=== PATIENT | female | born 1955 | race Caucasian/White ===

== ENCOUNTER → 2016-08-08 | Outpatient (CLI) | payer BC ==
[~2016-08-08] VITALS: Ht 175.3 cm; Wt 83.9 kg
[~2016-08-08] MED LIST: AFRIN,GENASAL D15 ML BOTH NARES; ALDACTONE50 MG PO; ATIVAN0.5 MG PO; K-DUR20 MEQ PO; LASIX20 MG PO; LASIX40 MG PO; LISINOPRIL20 MG PO; NORCO 5/3251 TABLET PO; ONE DAILY1 EAC3 PO; OTC ACID REDUCER; OXAYDO5 MG PO; RANITIDINE HCL150 MG PO; SPIRONOLACTONE50 MG PO; VISINE A.C300 DROP/1 BOTH EYES
[2016-08-08 06:49] LABS: HEMATOCRIT 36.3 % (36.0-46.0); MCH 32.9 PG (29.0-34.0); MCHC 33.9 G/DL (30.0-36.0); MCV 97.1 FL (83-99); MEAN PLAT.VOLUME 9.9 uM^3 (9.5-12.4); PLATELET COUNT 319 K/uL (156-360); RBC DIS.WIDTH-CV 13.2 % (11.8-14.6); RBC DIS.WIDTH-SD 47.6 % (39-53); RED BLOOD COUNT 3.74 M/uL (3.80-5.20)
[2016-08-08 06:57] LABS: CHLORIDE 106 mEq/L (99-109); POTASSIUM 3.6 mEq/L (3.7-5.4); SODIUM 138 mEq/L (136-147)
[2016-08-08 06:59] LABS: GLUCOSE 101 mg/dL (70-99)
[2016-08-08 07:00] LABS: INTER. NORMALIZED RATIO 1.2
[2016-08-08 07:01] LABS: ANION GAP 12 MEQ/L (2-14); TOTAL BILIRUBIN 1.5 mg/dL (0.0-1.0)
[2016-08-08 07:03] LABS: ALKALINE PHOSPHATASE 102 IU/L (3-129); GFR ESTIMATE (CALCULATED) 49 mL/min/
[2016-08-08 07:04] LABS: UREA NITROGEN (BUN) 9 mg/dL (9-23)
== END | disposition home or self-care (01) ==
LOC: AMB 06:31
PROVIDERS: Internal Medicine
DX: Z12.11 Encounter for screening for malignant neoplasm of colon (principal); Z09 Encounter for follow-up examination after completed treatment for conditions other than malignant neoplasm; K70.31 Alcoholic cirrhosis of liver with ascites; D12.6 Benign neoplasm of colon, unspecified; K52.89 Other specified noninfective gastroenteritis and colitis; K57.30 Diverticulosis of large intestine without perforation or abscess without bleeding; K91.840 Postprocedural hemorrhage of a digestive system organ or structure following a digestive system procedure; Z93.3 Colostomy status; Z93.2 Ileostomy status; R10.30 Lower abdominal pain, unspecified; R79.1 Abnormal coagulation profile; D64.9 Anemia, unspecified; Z79.899 Other long term (current) drug therapy
CPT/HCPCS: 80053; 85027; 85610; 88305; 93005; J1100; J2250; J2405; J3010

== ENCOUNTER 2016-09-18 06:24 | Inpatient (IN) | payer BC ==
[~2016-09-18] VITALS: Ht 177.8 cm; Wt 80.0 kg
[2016-09-18 06:49] VITALS: BP 108/71
[2016-09-18 09:45] LABS: METH RESISTANT S AUREUS PCR NEGATIVE (NEGATIVE); PROBE CHECK PASS; SPECIMEN PROCESSING CONTROL PASS
[2016-09-18 19:12] VITALS: BP 115/59
[2016-09-18 20:10] LABS: EOSINOPHIL (%) 0 % (0-5); HEMATOCRIT 24.9 % (36.0-46.0); IMMATURE GRANULOCYTE (%) 0.3 % (0.0-0.7); LYMPHOCYTE COUNT 0.4 K/uL (1.0-2.8); MCH 32.6 PG (29.0-34.0); MCHC 33.7 G/DL (30.0-36.0); MCV 96.5 FL (83-99); MEAN PLAT.VOLUME 10.5 uM^3 (9.5-12.4); MONOCYTE (%) 7.9 % (3-12); MONOCYTE COUNT 0.7 K/uL (0-0.8); NEUTROPHIL (%) 87.8 % (45-76); RBC DIS.WIDTH-CV 12.8 % (11.8-14.6); RBC DIS.WIDTH-SD 45.3 % (39-53)
[2016-09-18 20:19] LABS: CHLORIDE 104 mEq/L (99-109); POTASSIUM 3.9 mEq/L (3.7-5.4); SODIUM 134 mEq/L (136-147)
[2016-09-18 20:22] LABS: GLUCOSE 134 mg/dL (70-99)
[2016-09-18 20:23] LABS: ANION GAP 9 MEQ/L (2-14)
[2016-09-18 20:24] LABS: TOTAL BILIRUBIN 1.1 mg/dL (0.0-1.0)
[2016-09-18 20:25] LABS: ALKALINE PHOSPHATASE 56 IU/L (3-129)
[2016-09-18 20:26] LABS: GFR ESTIMATE (CALCULATED) > 59 mL/min/
[2016-09-18 20:27] LABS: UREA NITROGEN (BUN) 11 mg/dL (9-23)
[2016-09-18 20:36] LABS: MAGNESIUM 0.9 mg/dL (1.3-2.7)
[2016-09-18 21:22] LABS: RED BLOOD COUNT 2.58 M/uL (3.80-5.20); WHITE BLOOD COUNT 9.1 K/uL (4.1-10.2)
[2016-09-18 22:59] VITALS: BP 114/61
[2016-09-19 00:03] VITALS: BP 114/61
[2016-09-19 03:47] VITALS: BP 125/59
[2016-09-19 07:13] LABS: EOSINOPHIL (%) 0 % (0-5); HEMATOCRIT 24.9 % (36.0-46.0); IMMATURE GRANULOCYTE (%) 0.4 % (0.0-0.7); INSTRUMENT ABS NEUTROPHIL CT 9.4 K/uL; LYMPHOCYTE COUNT 0.5 K/uL (1.0-2.8); MCH 33.2 PG (29.0-34.0); MCHC 33.7 G/DL (30.0-36.0); MCV 98.4 FL (83-99); MEAN PLAT.VOLUME 10.6 uM^3 (9.5-12.4); MONOCYTE (%) 12.5 % (3-12); MONOCYTE COUNT 1.4 K/uL (0-0.8); NEUTROPHIL (%) 82.4 % (45-76); NEUTROPHIL COUNT 9.4 K/uL (1.8-6.4); RBC DIS.WIDTH-CV 12.9 % (11.8-14.6); RBC DIS.WIDTH-SD 46.6 % (39-53); RED BLOOD COUNT 2.53 M/uL (3.80-5.20); WHITE BLOOD COUNT 11.4 K/uL (4.1-10.2)
[2016-09-19 07:36] LABS: ALKALINE PHOSPHATASE 54 IU/L (3-129); ANION GAP 5 MEQ/L (2-14); CHLORIDE 104 MEQ/L (99-109); GFR ESTIMATE (CALCULATED) > 59 mL/min/; GLUCOSE 102 mg/dL (70-99); MAGNESIUM 2.2 mg/dl (1.3-2.7); POTASSIUM 4.2 MEQ/L (3.7-5.4); SAMPLE HEMOLYSIS CHECK 0; SAMPLE ICTERIC CHECK 0; SAMPLE LIPEMIA CHECK 0; SODIUM 135 MEQ/L (136-147); TOTAL BILIRUBIN 0.8 MG/DL (0.0-1.0); UREA NITROGEN (BUN) 13 mg/dL (9-23)
[2016-09-19 07:47] VITALS: BP 101/63
[2016-09-19 07:52] LABS: PLATELET COUNT 163 K/uL (156-360)
[2016-09-19 12:04] VITALS: BP 106/56
[2016-09-19 16:38] VITALS: BP 109/63
[2016-09-19 20:09] VITALS: BP 98/54
[2016-09-20] VITALS (7 sets, daily range): BP systolic 91–117; BP diastolic 53–67
[2016-09-21 04:00] VITALS: BP 98/51
[2016-09-21 07:04] VITALS: BP 101/50
[2016-09-21 13:43] VITALS: BP 96/52
[2016-09-21 15:36] VITALS: BP 91/64
[2016-09-21 17:14] LABS: EOSINOPHIL (%) 2.6 % (0-5); EOSINOPHIL COUNT 0.2 K/uL (0-0.3); HEMATOCRIT 23.7 % (36.0-46.0); IMMATURE GRANULOCYTE (%) 0.2 % (0.0-0.7); INSTRUMENT ABS NEUTROPHIL CT 3.6 K/uL; LYMPHOCYTE COUNT 1.7 K/uL (1.0-2.8); MCH 32.5 PG (29.0-34.0); MCHC 33.8 G/DL (30.0-36.0); MCV 96.3 FL (83-99); MEAN PLAT.VOLUME 10.6 uM^3 (9.5-12.4); MONOCYTE (%) 11.9 % (3-12); MONOCYTE COUNT 0.7 K/uL (0-0.8); NEUTROPHIL (%) 57.9 % (45-76); NEUTROPHIL COUNT 3.6 K/uL (1.8-6.4); PLATELET COUNT 172 K/uL (156-360); RBC DIS.WIDTH-CV 12.8 % (11.8-14.6); RBC DIS.WIDTH-SD 45.7 % (39-53); RED BLOOD COUNT 2.46 M/uL (3.80-5.20)
[2016-09-21 17:15] LABS: WHITE BLOOD COUNT 6.2 K/uL (4.1-10.2)
[2016-09-21 17:23] LABS: CHLORIDE 105 mEq/L (99-109); SODIUM 139 mEq/L (136-147)
[2016-09-21 17:25] LABS: GLUCOSE 89 mg/dL (70-99)
[2016-09-21 17:27] LABS: ANION GAP 7 MEQ/L (2-14); TOTAL BILIRUBIN 0.9 mg/dL (0.0-1.0)
[2016-09-21 17:29] LABS: ALKALINE PHOSPHATASE 54 IU/L (3-129); GFR ESTIMATE (CALCULATED) > 59 mL/min/
[2016-09-21 17:30] LABS: UREA NITROGEN (BUN) 7 mg/dL (9-23)
[2016-09-21 17:39] LABS: MAGNESIUM 1.4 mg/dL (1.3-2.7); POTASSIUM 3.2 mEq/L (3.7-5.4)
[2016-09-21 19:43] VITALS: BP 116/59
[2016-09-22 03:36] VITALS: BP 92/50
[2016-09-22 06:31] LABS: EOSINOPHIL (%) 3.6 % (0-5); EOSINOPHIL COUNT 0.2 K/uL (0-0.3); HEMATOCRIT 22.9 % (36.0-46.0); IMMATURE GRANULOCYTE (%) 0.5 % (0.0-0.7); INSTRUMENT ABS NEUTROPHIL CT 4.3 K/uL; LYMPHOCYTE COUNT 1.2 K/uL (1.0-2.8); MCH 33.6 PG (29.0-34.0); MCHC 34.1 G/DL (30.0-36.0); MCV 98.7 FL (83-99); MEAN PLAT.VOLUME 11.1 uM^3 (9.5-12.4); MONOCYTE (%) 13.9 % (3-12); MONOCYTE COUNT 0.9 K/uL (0-0.8); NEUTROPHIL (%) 64.4 % (45-76); NEUTROPHIL COUNT 4.3 K/uL (1.8-6.4); PLATELET COUNT 197 K/uL (156-360); RBC DIS.WIDTH-CV 13.1 % (11.8-14.6); RBC DIS.WIDTH-SD 47.1 % (39-53); RED BLOOD COUNT 2.32 M/uL (3.80-5.20); WHITE BLOOD COUNT 6.6 K/uL (4.1-10.2)
[2016-09-22 06:49] LABS: ALKALINE PHOSPHATASE 55 IU/L (3-129); ANION GAP 7 MEQ/L (2-14); CHLORIDE 102 MEQ/L (99-109); GFR ESTIMATE (CALCULATED) > 59 mL/min/; GLUCOSE 88 mg/dL (70-99); MAGNESIUM 2.4 mg/dl (1.3-2.7); SAMPLE HEMOLYSIS CHECK 0; SAMPLE ICTERIC CHECK 0; SAMPLE LIPEMIA CHECK 0; SODIUM 134 MEQ/L (136-147); UREA NITROGEN (BUN) 8 mg/dL (9-23)
[2016-09-22 06:52] LABS: POTASSIUM 4.3 MEQ/L (3.7-5.4)
[2016-09-22 07:04] VITALS: BP 99/54
[2016-09-22 12:10] VITALS: BP 100/64
[2016-09-22] MEDS ORDERED: OXAYDO5 MG PO (13:29)
== END 2016-09-22 14:40 | disposition home or self-care (01) | DRG 330 ==
LOC: 2SOUTH 06:24 → 5EAST 16:52
PROVIDERS: Surgery
DX: Z43.3 Encounter for attention to colostomy (principal); K70.31 Alcoholic cirrhosis of liver with ascites; L76.34 Postprocedural seroma of skin and subcutaneous tissue following other procedure; T81.89XA Other complications of procedures, not elsewhere classified, initial encounter; K66.0 Peritoneal adhesions (postprocedural) (postinfection); Z93.2 Ileostomy status; K43.2 Incisional hernia without obstruction or gangrene; E66.9 Obesity, unspecified; Z68.26 Body mass index [BMI] 26.0-26.9, adult; Z87.891 Personal history of nicotine dependence
CPT/HCPCS: 80053; 83735; 84100; 85025; 86900; 86901; 87641; 88302; 88305; 94799; C1781; J0131; J1100; J1170; J1650; J2175; J2250; J2405; J3475; J7040; J7120; P9045; S0030

== ENCOUNTER → 2017-01-01 | Outpatient (CLI) | payer BC ==
[~2017-01-01] VITALS: Ht 177.8 cm; Wt 78.2 kg
[~2017-01-01] MED LIST changes: +FLEXERIL10 MG PO; +MOBIC15 MG PO; +NEURONTIN300 MG PO
[2017-01-01 12:51] LABS: MCV 91.9 FL (83-99)
[2017-01-01 12:54] LABS: INTER. NORMALIZED RATIO 1.3; PROTHROMBIN TIME 14.1 SEC (10.2-12.9)
[2017-01-01 12:59] LABS: CHLORIDE 100 mEq/L (99-109); POTASSIUM 4.2 mEq/L (3.7-5.4); SODIUM 137 mEq/L (136-147)
[2017-01-01 13:01] LABS: GLUCOSE 91 mg/dL (70-99)
[2017-01-01 13:02] LABS: ANION GAP 14 MEQ/L (2-14)
[2017-01-01 13:05] LABS: GFR ESTIMATE (CALCULATED) 53 mL/min/
[2017-01-01 13:06] LABS: UREA NITROGEN (BUN) 16 mg/dL (9-23)
== END | disposition home or self-care (01) ==
LOC: AMB 11:50
PROVIDERS: Internal Medicine Gastroenterology
PROC: 0D7N8ZZ Dilation of Sigmoid Colon, Via Natural or Artificial Opening Endoscopic (ICD-10-PCS; principal; 2017-01-01)
DX: Z09 Encounter for follow-up examination after completed treatment for conditions other than malignant neoplasm (principal); K56.60 Unspecified intestinal obstruction; K63.89 Other specified diseases of intestine; K57.31 Diverticulosis of large intestine without perforation or abscess with bleeding; K70.9 Alcoholic liver disease, unspecified; I10 Essential (primary) hypertension; K21.9 Gastro-esophageal reflux disease without esophagitis; Z87.891 Personal history of nicotine dependence
CPT/HCPCS: 80048; 85014; 85018; 85610; C1757; J3010

== ENCOUNTER → 2017-01-15 | Outpatient (CLI) | payer BC ==
[~2017-01-15] VITALS: Ht 177.8 cm; Wt 78.2 kg
== END | disposition home or self-care (01) ==
LOC: AMB 12:30
PROC: 0D7N8ZZ Dilation of Sigmoid Colon, Via Natural or Artificial Opening Endoscopic (ICD-10-PCS; principal; 2017-01-15)
PROC: 3E0H8GC Introduction of Other Therapeutic Substance into Lower GI, Via Natural or Artificial Opening Endoscopic (ICD-10-PCS; principal; 2017-01-15)
DX: K91.3 Postprocedural intestinal obstruction (principal); Z93.2 Ileostomy status; K70.31 Alcoholic cirrhosis of liver with ascites; K57.90 Diverticulosis of intestine, part unspecified, without perforation or abscess without bleeding; Z90.49 Acquired absence of other specified parts of digestive tract; Z87.891 Personal history of nicotine dependence
CPT/HCPCS: C1757; J2250; J3010; J3301

== ENCOUNTER → 2017-01-29 | Outpatient (CLI) | payer BC | END | disposition home or self-care (01) | LOC: AMB 11:57 | DX: K56.699 Other intestinal obstruction unspecified as to partial versus complete obstruction (principal); Z93.2 Ileostomy status | CPT/HCPCS: 74000; 76000; C1757; J2250; J2405; J3010 ==

== ENCOUNTER → 2017-02-11 | Outpatient (CLI) | payer BC ==
[~2017-02-11] VITALS: Ht 177.8 cm; Wt 78.2 kg
== END | disposition home or self-care (01) ==
LOC: AMB 11:34
DX: K91.89 Other postprocedural complications and disorders of digestive system (principal); Z93.2 Ileostomy status
CPT/HCPCS: J2250

== ENCOUNTER 2017-03-03 03:59 | Inpatient (IN) | payer BC ==
[~2017-03-03] VITALS: Ht 177.8 cm; Wt 108.8 kg
[2017-03-03 04:31] LABS: MEAN PLAT.VOLUME 9.3 uM^3 (9.5-12.4); PLATELET COUNT 237 K/uL (156-360)
[2017-03-03 04:35] LABS: HEMATOCRIT 37.3 % (36.0-46.0); MCH 32.3 PG (29.0-34.0); MCHC 34.9 G/DL (30.0-36.0); MCV 92.6 FL (83-99); RBC DIS.WIDTH-CV 14.5 % (11.8-14.6); RBC DIS.WIDTH-SD 49.6 % (39-53); RED BLOOD COUNT 4.03 M/uL (3.80-5.20)
[2017-03-03 04:41] LABS: CHLORIDE 103 mEq/L (99-109); POTASSIUM 5.3 mEq/L (3.7-5.4); SODIUM 130 mEq/L (136-147)
[2017-03-03 04:42] LABS: GLUCOSE 115 mg/dL (70-99)
[2017-03-03 04:44] LABS: ANION GAP 11 MEQ/L (2-14)
[2017-03-03 04:46] LABS: GFR ESTIMATE (CALCULATED) > 59 mL/min/
[2017-03-03 04:47] LABS: UREA NITROGEN (BUN) 33 mg/dL (9-23)
[2017-03-03 04:57] LABS: ALKALINE PHOSPHATASE 156 IU/L (3-129)
[2017-03-03 04:59] LABS: DIRECT BILIRUBIN 0.5 mg/dL (0.0-0.3)
[2017-03-03 05:00] LABS: LIPASE 16 U/L (1.0-51.0)
[2017-03-03 05:37] LABS: ADD MIUA? NO; BILIRUBIN NEGATIVE; BLOOD NEGATIVE; COLOR YELLOW ((YELLOW)); GLUCOSE (STRIP) NEGATIVE; KETONES NEGATIVE; LEUKOCYTES NEGATIVE; NITRITE NEGATIVE; PROTEIN (STRIP) NEGATIVE; SPECIFIC GRAVITY 1.016 (1.000-1.030); UCUL ADDED? NO; UROBILINOGEN 0.2 MG/DL (0.2-1.0)
[2017-03-03] MEDS ORDERED: CEFTIN500 MG PO (09:03)
[2017-03-03 11:46] LABS: INTER. NORMALIZED RATIO 1.3; PROTHROMBIN TIME 14.6 SEC (10.2-12.9)
[2017-03-03 13:53] VITALS: BP 121/72
[2017-03-03 21:00] VITALS: BP 131/74
[2017-03-04 00:47] VITALS: BP 111/65
[2017-03-04 04:03] VITALS: BP 109/69
[2017-03-04 07:10] VITALS: BP 110/67
[2017-03-04 11:45] VITALS: BP 111/68
[2017-03-04 12:45] LABS: HEMATOCRIT 31.1 % (36.0-46.0); MCH 32.1 PG (29.0-34.0); MCHC 33.1 G/DL (30.0-36.0); RBC DIS.WIDTH-CV 15.3 % (11.8-14.6); RBC DIS.WIDTH-SD 54.6 % (39-53); WHITE BLOOD COUNT 17.9 K/uL (4.1-10.2)
[2017-03-04 12:53] LABS: MCV 96.9 FL (83-99); RED BLOOD COUNT 3.21 M/uL (3.80-5.20)
[2017-03-04 13:06] LABS: ANION GAP 7 MEQ/L (2-14); CHLORIDE 111 MEQ/L (99-109); GFR ESTIMATE (CALCULATED) > 59 mL/min/; GLUCOSE 122 mg/dL (70-99); POTASSIUM 4.9 MEQ/L (3.7-5.4); SAMPLE HEMOLYSIS CHECK 0; SAMPLE ICTERIC CHECK 0; SAMPLE LIPEMIA CHECK 0; SODIUM 133 MEQ/L (136-147); UREA NITROGEN (BUN) 35 mg/dL (9-23)
[2017-03-04 13:23] LABS: ABS NEUTROPHIL COUNT 17.4; ANISOCYTOSIS 1+; BAND NEUTROPHILS 22.8 % (0-8.0); BURR CELLS 3+; EOSINOPHIL ABS CT 0; LYMPHOCYTES 0.9 % (15.0-45.0); MACROCYTES 1+; MEAN PLAT.VOLUME 9.2 uM^3 (9.5-12.4); PLAT.SUFFICIENCY DECREASED; POIKILOCYTOSIS 3+; SEG.NEUTROPHILS 74.6 % (46.0-76.0)
[2017-03-04 13:28] LABS: PLATELET COUNT 155 K/uL (156-360)
[2017-03-04 16:15] VITALS: BP 115/70
[2017-03-04 19:22] VITALS: BP 113/63
[2017-03-05 00:07] VITALS: BP 135/76
[2017-03-05 04:19] VITALS: BP 132/74
[2017-03-05 05:20] LABS: HEMATOCRIT 29.7 % (36.0-46.0); MCH 31.5 PG (29.0-34.0); MCHC 33.7 G/DL (30.0-36.0); MCV 93.7 FL (83-99); MEAN PLAT.VOLUME 8.9 uM^3 (9.5-12.4); RBC DIS.WIDTH-CV 15.3 % (11.8-14.6); RED BLOOD COUNT 3.17 M/uL (3.80-5.20); WHITE BLOOD COUNT 19.8 K/uL (4.1-10.2)
[2017-03-05 06:43] LABS: ABS NEUTROPHIL COUNT 19.5; ANISOCYTOSIS 1+; BAND NEUTROPHILS 11.1 % (0-8.0); BURR CELLS 3+; EOSINOPHIL ABS CT 0; INSTRUMENT ABS NEUTROPHIL CT 18.1 K/uL; LYMPHOCYTES 0.8 % (15.0-45.0); MACROCYTES 1+; PLAT.SUFFICIENCY ADEQUATE; POIKILOCYTOSIS 3+; SEG.NEUTROPHILS 87.2 % (46.0-76.0)
[2017-03-05 07:38] LABS: ALKALINE PHOSPHATASE 103 IU/L (3-129); ANION GAP 7 MEQ/L (2-14); CHLORIDE 112 MEQ/L (99-109); GFR ESTIMATE (CALCULATED) > 59 mL/min/; POTASSIUM 4.7 MEQ/L (3.7-5.4); SAMPLE HEMOLYSIS CHECK 0; SAMPLE ICTERIC CHECK 0; SAMPLE LIPEMIA CHECK 0; SODIUM 134 MEQ/L (136-147); TOTAL BILIRUBIN 0.8 MG/DL (0.0-1.0); UREA NITROGEN (BUN) 32 mg/dL (9-23)
[2017-03-05 07:41] LABS: GLUCOSE 86 mg/dL (70-99)
[2017-03-05 07:50] VITALS: BP 123/70
[2017-03-05 11:15] VITALS: BP 116/70
[2017-03-05 15:50] VITALS: BP 120/72
[2017-03-05 20:44] VITALS: BP 102/67
[2017-03-06 01:14] VITALS: BP 141/74
[2017-03-06 04:17] VITALS: BP 118/71
[2017-03-06 05:41] LABS: HEMATOCRIT 29.2 % (36.0-46.0); MCHC 33.9 G/DL (30.0-36.0); MCV 94.5 FL (83-99); MEAN PLAT.VOLUME 9.2 uM^3 (9.5-12.4); RBC DIS.WIDTH-CV 15.7 % (11.8-14.6); RED BLOOD COUNT 3.09 M/uL (3.80-5.20); WHITE BLOOD COUNT 18.8 K/uL (4.1-10.2)
[2017-03-06 05:52] LABS: PLATELET COUNT 204 K/uL (156-360)
[2017-03-06 06:46] LABS: ALKALINE PHOSPHATASE 105 IU/L (3-129); ANION GAP 5 MEQ/L (2-14); CHLORIDE 108 MEQ/L (99-109); GFR ESTIMATE (CALCULATED) > 59 mL/min/; GLUCOSE 71 mg/dL (70-99); MAGNESIUM 1.5 mg/dl (1.3-2.7); POTASSIUM 4.4 MEQ/L (3.7-5.4); SAMPLE HEMOLYSIS CHECK 0; SAMPLE ICTERIC CHECK 0; SAMPLE LIPEMIA CHECK 0; SODIUM 130 MEQ/L (136-147); TOTAL BILIRUBIN 0.9 MG/DL (0.0-1.0); UREA NITROGEN (BUN) 26 mg/dL (9-23)
[2017-03-06 07:32] LABS: ABS NEUTROPHIL COUNT 17.7; ANISOCYTOSIS 2+; BAND NEUTROPHILS 20.2 % (0-8.0); BASOPHILS 2.5 %; BURR CELLS 2+; EOSINOPHIL ABS CT 0; INSTRUMENT ABS NEUTROPHIL CT 16.9 K/uL; LYMPHOCYTES 1.7 % (15.0-45.0); MACROCYTES 2+; PLAT.SUFFICIENCY ADEQUATE; POIKILOCYTOSIS 2+; SEG.NEUTROPHILS 73.9 % (46.0-76.0)
[2017-03-06 08:20] VITALS: BP 120/66
[2017-03-06 11:52] VITALS: BP 120/78
[2017-03-06 16:00] VITALS: BP 132/70
[2017-03-06 19:15] VITALS: BP 130/80
[2017-03-07 00:09] VITALS: BP 139/74
[2017-03-07 04:45] VITALS: BP 129/67
[2017-03-07 05:26] LABS: HEMATOCRIT 29.1 % (36.0-46.0); MCH 31.6 PG (29.0-34.0); MEAN PLAT.VOLUME 8.6 uM^3 (9.5-12.4); PLATELET COUNT 219 K/uL (156-360); RBC DIS.WIDTH-CV 15.3 % (11.8-14.6); RBC DIS.WIDTH-SD 52.2 % (39-53); RED BLOOD COUNT 3.13 M/uL (3.80-5.20); WHITE BLOOD COUNT 15.5 K/uL (4.1-10.2)
[2017-03-07 05:53] LABS: ANION GAP 7 MEQ/L (2-14); CHLORIDE 105 MEQ/L (99-109); GFR ESTIMATE (CALCULATED) > 59 mL/min/; GLUCOSE 80 mg/dL (70-99); POTASSIUM 4.1 MEQ/L (3.7-5.4); SAMPLE HEMOLYSIS CHECK 0; SAMPLE ICTERIC CHECK 0; SAMPLE LIPEMIA CHECK 0; SODIUM 129 MEQ/L (136-147); UREA NITROGEN (BUN) 22 mg/dL (9-23)
[2017-03-07 07:11] LABS: ANISOCYTOSIS 2+; BURR CELLS 2+; EOSINOPHIL ABS CT 0; HEMATOLOGY COMMENT 1 SN; INSTRUMENT ABS NEUTROPHIL CT 13.2 K/uL; LYMPHOCYTES 3.5 % (15.0-45.0); MACROCYTES 2+; PLAT.SUFFICIENCY ADEQUATE; POIKILOCYTOSIS 2+; SEG.NEUTROPHILS 90.4 % (46.0-76.0)
[2017-03-07 08:00] VITALS: BP 117/76
[2017-03-07 13:08] VITALS: BP 122/82
[2017-03-07 17:17] VITALS: BP 128/69
[2017-03-07 18:59] VITALS: BP 106/81
[2017-03-08] VITALS (7 sets, daily range): BP systolic 110–130; BP diastolic 58–72
[2017-03-08 08:18] LABS: BASOPHIL COUNT 0.1 K/uL (0-0.1); EOSINOPHIL (%) 0.3 % (0-5); EOSINOPHIL COUNT 0.1 K/uL (0-0.3); HEMATOCRIT 28.3 % (36.0-46.0); IMMATURE GRANULOCYTE (%) 2.4 % (0.0-0.7); IMMATURE GRANULOCYTE COUNT 0.4 K/uL; INSTRUMENT ABS NEUTROPHIL CT 12.6 K/uL; LYMPHOCYTE COUNT 0.9 K/uL (1.0-2.8); MCH 32.8 PG (29.0-34.0); MCHC 34.6 G/DL (30.0-36.0); MCV 94.6 FL (83-99); MEAN PLAT.VOLUME 8.7 uM^3 (9.5-12.4); MONOCYTE (%) 7.3 % (3-12); MONOCYTE COUNT 1.1 K/uL (0-0.8); NEUTROPHIL (%) 83.8 % (45-76); NEUTROPHIL COUNT 12.6 K/uL (1.8-6.4); PLATELET COUNT 211 K/uL (156-360); RBC DIS.WIDTH-CV 15.2 % (11.8-14.6); RBC DIS.WIDTH-SD 52.9 % (39-53); RED BLOOD COUNT 2.99 M/uL (3.80-5.20)
[2017-03-08 09:24] LABS: ANION GAP 9 MEQ/L (2-14); CHLORIDE 104 MEQ/L (99-109); GFR ESTIMATE (CALCULATED) > 59 mL/min/; GLUCOSE 76 mg/dL (70-99); POTASSIUM 4.3 MEQ/L (3.7-5.4); SAMPLE HEMOLYSIS CHECK 0; SAMPLE ICTERIC CHECK 0; SAMPLE LIPEMIA CHECK 0; SODIUM 130 MEQ/L (136-147); UREA NITROGEN (BUN) 21 mg/dL (9-23)
[2017-03-09 03:52] VITALS: BP 109/62
[2017-03-09 05:38] LABS: HEMATOCRIT 27.5 % (36.0-46.0); MCH 31.6 PG (29.0-34.0); MCHC 33.5 G/DL (30.0-36.0); MCV 94.5 FL (83-99); MEAN PLAT.VOLUME 8.9 uM^3 (9.5-12.4); PLATELET COUNT 248 K/uL (156-360); RED BLOOD COUNT 2.91 M/uL (3.80-5.20); WHITE BLOOD COUNT 17.9 K/uL (4.1-10.2)
[2017-03-09 06:13] LABS: ALKALINE PHOSPHATASE 96 IU/L (3-129); ANION GAP 6 MEQ/L (2-14); CHLORIDE 104 MEQ/L (99-109); GFR ESTIMATE (CALCULATED) > 59 mL/min/; GLUCOSE 82 mg/dL (70-99); MAGNESIUM 1.3 mg/dl (1.3-2.7); POTASSIUM 4.2 MEQ/L (3.7-5.4); SAMPLE HEMOLYSIS CHECK 0; SAMPLE ICTERIC CHECK 0; SAMPLE LIPEMIA CHECK 0; SODIUM 130 MEQ/L (136-147); UREA NITROGEN (BUN) 17 mg/dL (9-23)
[2017-03-09 06:30] LABS: EOSINOPHIL (%) 0.6 % (0-5); EOSINOPHIL COUNT 0.1 K/uL (0-0.3); IMMATURE GRANULOCYTE (%) 3.9 % (0.0-0.7); IMMATURE GRANULOCYTE COUNT 0.7 K/uL; INSTRUMENT ABS NEUTROPHIL CT 14.8 K/uL; MONOCYTE (%) 7.1 % (3-12); MONOCYTE COUNT 1.3 K/uL (0-0.8); NEUTROPHIL (%) 82.7 % (45-76); NEUTROPHIL COUNT 14.8 K/uL (1.8-6.4)
[2017-03-09 07:29] VITALS: BP 106/61
[2017-03-09 13:47] VITALS: BP 114/70
[2017-03-09 16:12] VITALS: BP 113/61
[2017-03-09 17:43] LABS: ADD MIUA? YES; BILIRUBIN NEGATIVE; BLOOD NEGATIVE; COLOR YELLOW ((YELLOW)); GLUCOSE (STRIP) NEGATIVE; KETONES NEGATIVE; LEUKOCYTES TRACE; NITRITE NEGATIVE; PROTEIN (STRIP) NEGATIVE; SPECIFIC GRAVITY 1.014 (1.000-1.030); UROBILINOGEN 0.2 MG/DL (0.2-1.0)
[2017-03-09 17:51] LABS: BACTERIA NONE SEEN /HPF; EPITHELIAL CELLS RARE /HPF; HYALINE CASTS 40-50 /LPF; MUCUS 1+ /LPF; RED BLOOD CELLS 0-5 /HPF (0-5); UCUL ADDED? NO; WHITE BLOOD CELLS 0-5 /HPF (0-5)
[2017-03-09 19:00] VITALS: BP 128/74
[2017-03-09 22:45] VITALS: BP 121/62
[2017-03-10 03:45] VITALS: BP 118/68
[2017-03-10 07:36] VITALS: BP 118/75
[2017-03-10 08:41] LABS: HEMATOCRIT 30.2 % (36.0-46.0); MCH 31.6 PG (29.0-34.0); MCHC 33.4 G/DL (30.0-36.0); MCV 94.4 FL (83-99); MEAN PLAT.VOLUME 8.4 uM^3 (9.5-12.4); PLATELET COUNT 267 K/uL (156-360); RBC DIS.WIDTH-SD 51.7 % (39-53); WHITE BLOOD COUNT 22.1 K/uL (4.1-10.2)
[2017-03-10 09:17] LABS: ANION GAP 6 MEQ/L (2-14); CHLORIDE 101 MEQ/L (99-109); POTASSIUM 4.3 MEQ/L (3.7-5.4); SAMPLE HEMOLYSIS CHECK 0; SAMPLE ICTERIC CHECK 0; SAMPLE LIPEMIA CHECK 0; SODIUM 128 MEQ/L (136-147)
[2017-03-10 09:23] LABS: GFR ESTIMATE (CALCULATED) > 59 mL/min/; GLUCOSE 85 mg/dL (70-99); UREA NITROGEN (BUN) 15 mg/dL (9-23)
[2017-03-10 11:29] VITALS: BP 114/61
[2017-03-10 16:19] VITALS: BP 147/82
[2017-03-10 19:41] VITALS: BP 103/67
[2017-03-10 23:37] VITALS: BP 108/65
[2017-03-11] VITALS (10 sets, daily range): BP systolic 94–137; BP diastolic 61–75
[2017-03-11 08:49] LABS: MEAN PLAT.VOLUME 8.4 uM^3 (9.5-12.4); PLATELET COUNT 300 K/uL (156-360)
[2017-03-11 08:52] LABS: HEMATOCRIT 29.3 % (36.0-46.0); MCH 31.5 PG (29.0-34.0); MCHC 33.4 G/DL (30.0-36.0); MCV 94.2 FL (83-99); RBC DIS.WIDTH-CV 15.4 % (11.8-14.6); RBC DIS.WIDTH-SD 52.2 % (39-53); RED BLOOD COUNT 3.11 M/uL (3.80-5.20)
[2017-03-11 09:01] LABS: WHITE BLOOD COUNT 31.4 K/uL (4.1-10.2)
[2017-03-11 10:14] LABS: ANION GAP 7 MEQ/L (2-14); CHLORIDE 99 MEQ/L (99-109); GFR ESTIMATE (CALCULATED) > 59 mL/min/; GLUCOSE 86 mg/dL (70-99); POTASSIUM 4.9 MEQ/L (3.7-5.4); SAMPLE HEMOLYSIS CHECK 0; SAMPLE ICTERIC CHECK 0; SAMPLE LIPEMIA CHECK 0; SODIUM 125 MEQ/L (136-147); UREA NITROGEN (BUN) 22 mg/dL (9-23)
[2017-03-11 17:54] LABS: HEMATOCRIT 27.8 % (36.0-46.0); MCHC 33.8 G/DL (30.0-36.0); MCV 94.6 FL (83-99); MEAN PLAT.VOLUME 8.8 uM^3 (9.5-12.4); PLATELET COUNT 332 K/uL (156-360); RBC DIS.WIDTH-CV 15.3 % (11.8-14.6); RBC DIS.WIDTH-SD 52.3 % (39-53); RED BLOOD COUNT 2.94 M/uL (3.80-5.20); WHITE BLOOD COUNT 27.3 K/uL (4.1-10.2)
[2017-03-11 18:20] LABS: ALKALINE PHOSPHATASE 118 IU/L (3-129); ANION GAP 4 MEQ/L (2-14); CHLORIDE 97 MEQ/L (99-109); GFR ESTIMATE (CALCULATED) > 59 mL/min/; GLUCOSE 96 mg/dL (70-99); MAGNESIUM 1.3 mg/dl (1.3-2.7); POTASSIUM 4.5 MEQ/L (3.7-5.4); SAMPLE HEMOLYSIS CHECK 0; SAMPLE ICTERIC CHECK 0; SAMPLE LIPEMIA CHECK 0; SODIUM 124 MEQ/L (136-147); TOTAL BILIRUBIN 0.7 MG/DL (0.0-1.0); UREA NITROGEN (BUN) 23 mg/dL (9-23)
[2017-03-11 21:03] LABS: METH RESISTANT S AUREUS PCR NEGATIVE (NEGATIVE)
[2017-03-11 21:11] LABS: PROBE CHECK PASS; SPECIMEN PROCESSING CONTROL PASS
[2017-03-12] VITALS (22 sets, daily range): BP systolic 91–119; BP diastolic 59–77
[2017-03-12 04:50] LABS: EOSINOPHIL (%) 0.2 % (0-5); HEMATOCRIT 25.2 % (36.0-46.0); IMMATURE GRANULOCYTE (%) 3.7 % (0.0-0.7); IMMATURE GRANULOCYTE COUNT 0.6 K/uL; INSTRUMENT ABS NEUTROPHIL CT 13.7 K/uL; LYMPHOCYTE COUNT 0.9 K/uL (1.0-2.8); MCH 32.1 PG (29.0-34.0); MCHC 34.1 G/DL (30.0-36.0); MEAN PLAT.VOLUME 8.4 uM^3 (9.5-12.4); MONOCYTE (%) 6.7 % (3-12); MONOCYTE COUNT 1.1 K/uL (0-0.8); NEUTROPHIL COUNT 13.7 K/uL (1.8-6.4); PLATELET COUNT 255 K/uL (156-360); RBC DIS.WIDTH-CV 15.4 % (11.8-14.6); RBC DIS.WIDTH-SD 52.5 % (39-53); RED BLOOD COUNT 2.68 M/uL (3.80-5.20); WHITE BLOOD COUNT 16.4 K/uL (4.1-10.2)
[2017-03-12 05:04] LABS: CHLORIDE 104 mEq/L (99-109); POTASSIUM 4.7 mEq/L (3.7-5.4); SODIUM 129 mEq/L (136-147)
[2017-03-12 05:07] LABS: GLUCOSE 90 mg/dL (70-99)
[2017-03-12 05:08] LABS: ANION GAP 3 MEQ/L (2-14)
[2017-03-12 05:09] LABS: TOTAL BILIRUBIN 0.6 mg/dL (0.0-1.0)
[2017-03-12 05:10] LABS: ALKALINE PHOSPHATASE 111 IU/L (3-129)
[2017-03-12 05:11] LABS: GFR ESTIMATE (CALCULATED) > 59 mL/min/
[2017-03-12 05:12] LABS: UREA NITROGEN (BUN) 17 mg/dL (9-23)
[2017-03-12 10:19] LABS: CARBON DIOXIDE (BICARBONATE) 22.1 MEQ/L (20-31)
[2017-03-13] VITALS (15 sets, daily range): BP systolic 96–122; BP diastolic 55–78
[2017-03-13 04:37] LABS: HEMATOCRIT 27.9 % (36.0-46.0); MCH 32.1 PG (29.0-34.0); MCHC 33.3 G/DL (30.0-36.0); MCV 96.2 FL (83-99); MEAN PLAT.VOLUME 8.5 uM^3 (9.5-12.4); PLATELET COUNT 310 K/uL (156-360); RBC DIS.WIDTH-CV 15.9 % (11.8-14.6)
[2017-03-13 05:01] LABS: CHLORIDE 102 mEq/L (99-109); POTASSIUM 4.8 mEq/L (3.7-5.4); SODIUM 129 mEq/L (136-147)
[2017-03-13 05:03] LABS: GLUCOSE 98 mg/dL (70-99)
[2017-03-13 05:05] LABS: ANION GAP 7 MEQ/L (2-14)
[2017-03-13 05:07] LABS: GFR ESTIMATE (CALCULATED) > 59 mL/min/
[2017-03-13 05:08] LABS: UREA NITROGEN (BUN) 14 mg/dL (9-23)
[2017-03-13 05:15] LABS: MAGNESIUM 1.6 mg/dL (1.3-2.7)
[2017-03-14] VITALS (13 sets, daily range): BP systolic 93–128; BP diastolic 60–96
[2017-03-14 06:14] LABS: HEMATOCRIT 31.5 % (36.0-46.0); MCH 32.2 PG (29.0-34.0); MCV 97.5 FL (83-99); MEAN PLAT.VOLUME 8.4 uM^3 (9.5-12.4); PLATELET COUNT 334 K/uL (156-360); RBC DIS.WIDTH-CV 16.2 % (11.8-14.6); RBC DIS.WIDTH-SD 56.6 % (39-53); RED BLOOD COUNT 3.23 M/uL (3.80-5.20); WHITE BLOOD COUNT 16.2 K/uL (4.1-10.2)
[2017-03-15] VITALS (10 sets, daily range): BP systolic 92–115; BP diastolic 55–78
[2017-03-15 05:02] LABS: EOSINOPHIL (%) 0.3 % (0-5); HEMATOCRIT 27.1 % (36.0-46.0); IMMATURE GRANULOCYTE (%) 1.7 % (0.0-0.7); IMMATURE GRANULOCYTE COUNT 0.2 K/uL; LYMPHOCYTE COUNT 0.8 K/uL (1.0-2.8); MCH 32.4 PG (29.0-34.0); MCHC 33.6 G/DL (30.0-36.0); MCV 96.4 FL (83-99); MONOCYTE (%) 10.1 % (3-12); MONOCYTE COUNT 1.1 K/uL (0-0.8); NEUTROPHIL (%) 80.2 % (45-76); NRBC (%) 0.2 /100 WBC (0-0); RBC DIS.WIDTH-CV 16.5 % (11.8-14.6); RBC DIS.WIDTH-SD 58.2 % (39-53); RED BLOOD COUNT 2.81 M/uL (3.80-5.20); WHITE BLOOD COUNT 11.2 K/uL (4.1-10.2)
[2017-03-15 05:13] LABS: CHLORIDE 106 mEq/L (99-109); POTASSIUM 4.2 mEq/L (3.7-5.4); SODIUM 130 mEq/L (136-147)
[2017-03-15 05:16] LABS: GLUCOSE 93 mg/dL (70-99)
[2017-03-15 05:17] LABS: ANION GAP 3 MEQ/L (2-14)
[2017-03-15 05:19] LABS: ALKALINE PHOSPHATASE 161 IU/L (3-129); GFR ESTIMATE (CALCULATED) > 59 mL/min/; MAGNESIUM 1.1 mg/dL (1.3-2.7); TOTAL BILIRUBIN 0.8 mg/dL (0.0-1.0)
[2017-03-15 05:20] LABS: UREA NITROGEN (BUN) 13 mg/dL (9-23)
[2017-03-15 05:48] LABS: MEAN PLAT.VOLUME 8.2 uM^3 (9.5-12.4); PLAT.SUFFICIENCY ADEQUATE
[2017-03-15 05:49] LABS: PLATELET COUNT 209 K/uL (156-360)
[2017-03-16] VITALS (10 sets, daily range): BP systolic 89–122; BP diastolic 59–72
[2017-03-16 09:56] LABS: EOSINOPHIL (%) 0.6 % (0-5); EOSINOPHIL COUNT 0.1 K/uL (0-0.3); HEMATOCRIT 29.3 % (36.0-46.0); IMMATURE GRANULOCYTE (%) 1.8 % (0.0-0.7); IMMATURE GRANULOCYTE COUNT 0.2 K/uL; INSTRUMENT ABS NEUTROPHIL CT 7.6 K/uL; LYMPHOCYTE COUNT 0.9 K/uL (1.0-2.8); MCH 32.3 PG (29.0-34.0); MCHC 33.1 G/DL (30.0-36.0); MCV 97.7 FL (83-99); MEAN PLAT.VOLUME 8.3 uM^3 (9.5-12.4); MONOCYTE (%) 9.6 % (3-12); MONOCYTE COUNT 0.9 K/uL (0-0.8); NEUTROPHIL (%) 78.8 % (45-76); NEUTROPHIL COUNT 7.6 K/uL (1.8-6.4); PLATELET COUNT 236 K/uL (156-360); RBC DIS.WIDTH-SD 60.3 % (39-53); WHITE BLOOD COUNT 9.6 K/uL (4.1-10.2)
[2017-03-16 10:25] LABS: ANION GAP 7 MEQ/L (2-14); CHLORIDE 104 MEQ/L (99-109); GFR ESTIMATE (CALCULATED) > 59 mL/min/; POTASSIUM 4.1 MEQ/L (3.7-5.4); SAMPLE HEMOLYSIS CHECK 0; SAMPLE ICTERIC CHECK 0; SAMPLE LIPEMIA CHECK 0; SODIUM 131 MEQ/L (136-147); UREA NITROGEN (BUN) 9 mg/dL (9-23)
[2017-03-16 10:26] LABS: GLUCOSE 120 mg/dL (70-99)
[2017-03-17 04:10] VITALS: BP 114/71
[2017-03-17 06:22] LABS: EOSINOPHIL (%) 1.2 % (0-5); EOSINOPHIL COUNT 0.1 K/uL (0-0.3); HEMATOCRIT 25.9 % (36.0-46.0); IMMATURE GRANULOCYTE COUNT 0.2 K/uL; INSTRUMENT ABS NEUTROPHIL CT 5.9 K/uL; LYMPHOCYTE COUNT 0.8 K/uL (1.0-2.8); MCH 31.7 PG (29.0-34.0); MCHC 32.8 G/DL (30.0-36.0); MCV 96.6 FL (83-99); MEAN PLAT.VOLUME 8.2 uM^3 (9.5-12.4); MONOCYTE (%) 14.2 % (3-12); MONOCYTE COUNT 1.2 K/uL (0-0.8); NEUTROPHIL (%) 72.8 % (45-76); NEUTROPHIL COUNT 5.9 K/uL (1.8-6.4); PLATELET COUNT 192 K/uL (156-360); RBC DIS.WIDTH-CV 16.6 % (11.8-14.6); RBC DIS.WIDTH-SD 58.4 % (39-53); RED BLOOD COUNT 2.68 M/uL (3.80-5.20); WHITE BLOOD COUNT 8.1 K/uL (4.1-10.2)
[2017-03-17 06:45] LABS: ANION GAP 4 MEQ/L (2-14); CHLORIDE 106 MEQ/L (99-109); GFR ESTIMATE (CALCULATED) > 59 mL/min/; SAMPLE HEMOLYSIS CHECK 0; SAMPLE ICTERIC CHECK 0; SAMPLE LIPEMIA CHECK 0; SODIUM 132 MEQ/L (136-147); UREA NITROGEN (BUN) 10 mg/dL (9-23)
[2017-03-17 06:49] LABS: GLUCOSE 82 mg/dL (70-99)
[2017-03-17 07:49] VITALS: BP 116/55
[2017-03-17 12:43] LABS: MAGNESIUM 1.2 mg/dl (1.3-2.7)
[2017-03-17 16:02] VITALS: BP 118/70
[2017-03-17 19:26] VITALS: BP 103/63
[2017-03-17 22:55] LABS: HEMATOCRIT 27.7 % (36.0-46.0); MCHC 33.6 G/DL (30.0-36.0); MCV 95.2 FL (83-99); MEAN PLAT.VOLUME 8.2 uM^3 (9.5-12.4); PLATELET COUNT 181 K/uL (156-360); RBC DIS.WIDTH-CV 16.5 % (11.8-14.6); RBC DIS.WIDTH-SD 57.7 % (39-53); RED BLOOD COUNT 2.91 M/uL (3.80-5.20); WHITE BLOOD COUNT 11.8 K/uL (4.1-10.2)
[2017-03-17 23:04] LABS: CHLORIDE 106 mEq/L (99-109); POTASSIUM 3.8 mEq/L (3.7-5.4); SODIUM 128 mEq/L (136-147)
[2017-03-17 23:08] VITALS: BP 107/69
[2017-03-17 23:08] LABS: ANION GAP 4 MEQ/L (2-14); TOTAL BILIRUBIN 0.7 mg/dL (0.0-1.0)
[2017-03-17 23:10] LABS: ALKALINE PHOSPHATASE 159 IU/L (3-129); GFR ESTIMATE (CALCULATED) > 59 mL/min/
[2017-03-17 23:11] LABS: UREA NITROGEN (BUN) 10 mg/dL (9-23)
[2017-03-17 23:19] LABS: GLUCOSE 114 mg/dL (70-99)
[2017-03-17 23:54] VITALS: BP 108/62
[2017-03-18 00:07] LABS: MAGNESIUM 0.8 mg/dL (1.3-2.7)
[2017-03-18 00:23] LABS: BASE EXCESS -2.9 mEq/L (-3 to +3); BICARBONATE 20.4 mEq/L (22-26); CARBOXY HGB 1.5 % (0-5); COMMENTS - BLOOD GASES A+C+; DEVICE NC; METHEMOGLOBIN 1.2 % (0-1.5); O2 FLOW 1 L/MIN; PCO2 30 mm Hg (35-45); PO2 89 mm Hg (80-100); SITE RR; TOTAL RESP RATE 18 resp/min; pH 7.44 (7.35-7.45)
[2017-03-18 07:10] LABS: EOSINOPHIL (%) 0.5 % (0-5); EOSINOPHIL COUNT 0.1 K/uL (0-0.3); HEMATOCRIT 28.7 % (36.0-46.0); IMMATURE GRANULOCYTE (%) 1.9 % (0.0-0.7); IMMATURE GRANULOCYTE COUNT 0.3 K/uL; INSTRUMENT ABS NEUTROPHIL CT 10.2 K/uL; MCH 31.1 PG (29.0-34.0); MCHC 32.4 G/DL (30.0-36.0); MEAN PLAT.VOLUME 8.3 uM^3 (9.5-12.4); MONOCYTE (%) 12.1 % (3-12); MONOCYTE COUNT 1.6 K/uL (0-0.8); NEUTROPHIL (%) 77.4 % (45-76); NEUTROPHIL COUNT 10.2 K/uL (1.8-6.4); PLATELET COUNT 220 K/uL (156-360); RBC DIS.WIDTH-CV 16.4 % (11.8-14.6); RBC DIS.WIDTH-SD 57.7 % (39-53); RED BLOOD COUNT 2.99 M/uL (3.80-5.20); WHITE BLOOD COUNT 13.2 K/uL (4.1-10.2)
[2017-03-18 07:38] LABS: ANION GAP 5 MEQ/L (2-14); CHLORIDE 103 MEQ/L (99-109); GFR ESTIMATE (CALCULATED) > 59 mL/min/; SAMPLE HEMOLYSIS CHECK 1; SAMPLE ICTERIC CHECK 0; SAMPLE LIPEMIA CHECK 0; SODIUM 128 MEQ/L (136-147); UREA NITROGEN (BUN) 10 mg/dL (9-23)
[2017-03-18 07:39] LABS: GLUCOSE 81 mg/dL (70-99)
[2017-03-18 07:40] LABS: MAGNESIUM 2.1 mg/dl (1.3-2.7); POTASSIUM 4.7 MEQ/L (3.7-5.4)
[2017-03-18 08:08] VITALS: BP 111/58
[2017-03-18 11:43] VITALS: BP 110/58
[2017-03-18 15:51] VITALS: BP 114/59
[2017-03-18 19:10] VITALS: BP 102/59
[2017-03-19] VITALS (8 sets, daily range): BP systolic 88–122; BP diastolic 52–70
[2017-03-19 06:11] LABS: EOSINOPHIL COUNT 0.1 K/uL (0-0.3); HEMATOCRIT 25.6 % (36.0-46.0); IMMATURE GRANULOCYTE (%) 2.4 % (0.0-0.7); IMMATURE GRANULOCYTE COUNT 0.3 K/uL; INSTRUMENT ABS NEUTROPHIL CT 8.5 K/uL; LYMPHOCYTE COUNT 0.9 K/uL (1.0-2.8); MCH 31.1 PG (29.0-34.0); MCHC 32.8 G/DL (30.0-36.0); MCV 94.8 FL (83-99); MEAN PLAT.VOLUME 8.1 uM^3 (9.5-12.4); MONOCYTE (%) 14.4 % (3-12); MONOCYTE COUNT 1.7 K/uL (0-0.8); NEUTROPHIL (%) 73.9 % (45-76); NEUTROPHIL COUNT 8.5 K/uL (1.8-6.4); PLATELET COUNT 192 K/uL (156-360); RBC DIS.WIDTH-CV 16.6 % (11.8-14.6); RBC DIS.WIDTH-SD 57.3 % (39-53); WHITE BLOOD COUNT 11.6 K/uL (4.1-10.2)
[2017-03-19 06:29] LABS: ANION GAP 4 MEQ/L (2-14); CHLORIDE 102 MEQ/L (99-109); GFR ESTIMATE (CALCULATED) > 59 mL/min/; GLUCOSE 88 mg/dL (70-99); POTASSIUM 3.9 MEQ/L (3.7-5.4); SAMPLE HEMOLYSIS CHECK 0; SAMPLE ICTERIC CHECK 0; SAMPLE LIPEMIA CHECK 0; SODIUM 129 MEQ/L (136-147); UREA NITROGEN (BUN) 10 mg/dL (9-23)
[2017-03-20 00:02] VITALS: BP 108/58
[2017-03-20 04:10] VITALS: BP 102/56
[2017-03-20 07:34] LABS: EOSINOPHIL (%) 1.3 % (0-5); EOSINOPHIL COUNT 0.1 K/uL (0-0.3); HEMATOCRIT 26.3 % (36.0-46.0); IMMATURE GRANULOCYTE (%) 2.3 % (0.0-0.7); IMMATURE GRANULOCYTE COUNT 0.3 K/uL; INSTRUMENT ABS NEUTROPHIL CT 8.2 K/uL; MCHC 34.2 G/DL (30.0-36.0); MCV 96.3 FL (83-99); MEAN PLAT.VOLUME 8.6 uM^3 (9.5-12.4); MONOCYTE (%) 13.2 % (3-12); MONOCYTE COUNT 1.5 K/uL (0-0.8); NEUTROPHIL (%) 74.3 % (45-76); NEUTROPHIL COUNT 8.2 K/uL (1.8-6.4); PLATELET COUNT 184 K/uL (156-360); RBC DIS.WIDTH-CV 16.5 % (11.8-14.6); RED BLOOD COUNT 2.73 M/uL (3.80-5.20)
[2017-03-20 07:58] LABS: ANION GAP 6 MEQ/L (2-14); CHLORIDE 101 MEQ/L (99-109); GFR ESTIMATE (CALCULATED) > 59 mL/min/; GLUCOSE 80 mg/dL (70-99); POTASSIUM 3.7 MEQ/L (3.7-5.4); SAMPLE HEMOLYSIS CHECK 0; SAMPLE ICTERIC CHECK 0; SAMPLE LIPEMIA CHECK 0; SODIUM 130 MEQ/L (136-147); UREA NITROGEN (BUN) 9 mg/dL (9-23)
[2017-03-20 08:27] VITALS: BP 98/53
[2017-03-20 12:16] VITALS: BP 116/61
[2017-03-20 15:59] VITALS: BP 94/58
[2017-03-20 19:30] VITALS: BP 98/65
[2017-03-21] VITALS: BP 99/77
[2017-03-21 03:29] VITALS: BP 100/59
[2017-03-21 08:00] VITALS: BP 100/66
[2017-03-21 11:59] VITALS: BP 98/55
[2017-03-21 16:15] VITALS: BP 94/52
[2017-03-21 20:18] VITALS: BP 91/53
[2017-03-22] VITALS (7 sets, daily range): BP systolic 88–102; BP diastolic 52–60
[2017-03-22 07:14] LABS: BASOPHIL COUNT 0.1 K/uL (0-0.1); EOSINOPHIL (%) 2.1 % (0-5); EOSINOPHIL COUNT 0.3 K/uL (0-0.3); HEMATOCRIT 26.4 % (36.0-46.0); IMMATURE GRANULOCYTE (%) 2.9 % (0.0-0.7); IMMATURE GRANULOCYTE COUNT 0.4 K/uL; INSTRUMENT ABS NEUTROPHIL CT 9.6 K/uL; LYMPHOCYTE COUNT 1.1 K/uL (1.0-2.8); MCH 31.5 PG (29.0-34.0); MCV 95.7 FL (83-99); MEAN PLAT.VOLUME 8.3 uM^3 (9.5-12.4); MONOCYTE COUNT 1.7 K/uL (0-0.8); NEUTROPHIL (%) 72.9 % (45-76); NEUTROPHIL COUNT 9.6 K/uL (1.8-6.4); PLATELET COUNT 201 K/uL (156-360); RBC DIS.WIDTH-CV 16.6 % (11.8-14.6); RED BLOOD COUNT 2.76 M/uL (3.80-5.20); WHITE BLOOD COUNT 13.2 K/uL (4.1-10.2)
[2017-03-22 08:02] LABS: ALKALINE PHOSPHATASE 134 IU/L (3-129); ANION GAP 6 MEQ/L (2-14); CHLORIDE 98 MEQ/L (99-109); GFR ESTIMATE (CALCULATED) > 59 mL/min/; GLUCOSE 86 mg/dL (70-99); POTASSIUM 3.6 MEQ/L (3.7-5.4); SAMPLE HEMOLYSIS CHECK 0; SAMPLE ICTERIC CHECK 0; SAMPLE LIPEMIA CHECK 0; SODIUM 129 MEQ/L (136-147); TOTAL BILIRUBIN 0.9 MG/DL (0.0-1.0); UREA NITROGEN (BUN) 9 mg/dL (9-23)
[2017-03-22 08:03] LABS: MAGNESIUM 1.1 mg/dl (1.3-2.7)
[2017-03-23 04:17] VITALS: BP 105/60
[2017-03-23 06:41] VITALS: BP 98/62
[2017-03-23 09:07] LABS: BASOPHIL COUNT 0.1 K/uL (0-0.1); EOSINOPHIL (%) 1.7 % (0-5); EOSINOPHIL COUNT 0.3 K/uL (0-0.3); HEMATOCRIT 27.8 % (36.0-46.0); IMMATURE GRANULOCYTE (%) 2.1 % (0.0-0.7); IMMATURE GRANULOCYTE COUNT 0.3 K/uL; INSTRUMENT ABS NEUTROPHIL CT 11.1 K/uL; LYMPHOCYTE COUNT 1.3 K/uL (1.0-2.8); MCH 31.5 PG (29.0-34.0); MCHC 33.1 G/DL (30.0-36.0); MCV 95.2 FL (83-99); MEAN PLAT.VOLUME 8.7 uM^3 (9.5-12.4); MONOCYTE (%) 11.8 % (3-12); MONOCYTE COUNT 1.7 K/uL (0-0.8); NEUTROPHIL (%) 75.4 % (45-76); NEUTROPHIL COUNT 11.1 K/uL (1.8-6.4); PLATELET COUNT 259 K/uL (156-360); RBC DIS.WIDTH-CV 16.2 % (11.8-14.6); RBC DIS.WIDTH-SD 57.2 % (39-53); RED BLOOD COUNT 2.92 M/uL (3.80-5.20); WHITE BLOOD COUNT 14.8 K/uL (4.1-10.2)
[2017-03-23 09:18] LABS: ANION GAP 5 MEQ/L (2-14); CHLORIDE 98 MEQ/L (99-109); GFR ESTIMATE (CALCULATED) > 59 mL/min/; GLUCOSE 83 mg/dL (70-99); POTASSIUM 3.7 MEQ/L (3.7-5.4); SAMPLE HEMOLYSIS CHECK 0; SAMPLE ICTERIC CHECK 0; SAMPLE LIPEMIA CHECK 0; SODIUM 129 MEQ/L (136-147); UREA NITROGEN (BUN) 9 mg/dL (9-23)
[2017-03-23 11:53] VITALS: BP 93/56
[2017-03-23 16:52] VITALS: BP 97/56
[2017-03-23 20:15] VITALS: BP 94/53
[2017-03-23 23:46] VITALS: BP 102/61
[2017-03-24] VITALS (7 sets, daily range): BP systolic 84–118; BP diastolic 50–74
[2017-03-25 04:04] VITALS: BP 93/54
[2017-03-25 06:05] LABS: BASOPHIL COUNT 0.1 K/uL (0-0.1); EOSINOPHIL (%) 1.3 % (0-5); EOSINOPHIL COUNT 0.2 K/uL (0-0.3); HEMATOCRIT 26.3 % (36.0-46.0); IMMATURE GRANULOCYTE (%) 1.9 % (0.0-0.7); IMMATURE GRANULOCYTE COUNT 0.3 K/uL; INSTRUMENT ABS NEUTROPHIL CT 11.6 K/uL; LYMPHOCYTE COUNT 1.1 K/uL (1.0-2.8); MCHC 32.7 G/DL (30.0-36.0); MCV 94.9 FL (83-99); MEAN PLAT.VOLUME 8.1 uM^3 (9.5-12.4); MONOCYTE (%) 13.8 % (3-12); MONOCYTE COUNT 2.1 K/uL (0-0.8); NEUTROPHIL (%) 75.3 % (45-76); NEUTROPHIL COUNT 11.6 K/uL (1.8-6.4); PLATELET COUNT 243 K/uL (156-360); RBC DIS.WIDTH-CV 15.9 % (11.8-14.6); RBC DIS.WIDTH-SD 55.4 % (39-53); RED BLOOD COUNT 2.77 M/uL (3.80-5.20); WHITE BLOOD COUNT 15.4 K/uL (4.1-10.2)
[2017-03-25 06:25] LABS: GFR ESTIMATE (CALCULATED) > 59 mL/min/; VANCOMYCIN, TROUGH 15.3 MCG/ML (10-20)
[2017-03-25 06:51] LABS: ALKALINE PHOSPHATASE 121 IU/L (3-129); ANION GAP 5 MEQ/L (2-14); CHLORIDE 99 MEQ/L (99-109); GFR ESTIMATE (CALCULATED) > 59 mL/min/; GLUCOSE 77 mg/dL (70-99); POTASSIUM 3.9 MEQ/L (3.7-5.4); SAMPLE HEMOLYSIS CHECK 0; SAMPLE ICTERIC CHECK 0; SAMPLE LIPEMIA CHECK 0; SODIUM 130 MEQ/L (136-147); UREA NITROGEN (BUN) 11 mg/dL (9-23)
[2017-03-25 07:33] VITALS: BP 94/51
[2017-03-25 11:14] VITALS: BP 84/53
[2017-03-25 15:58] VITALS: BP 91/55
[2017-03-25 20:28] VITALS: BP 91/53
[2017-03-25 23:57] VITALS: BP 87/49
[2017-03-26] VITALS (7 sets, daily range): BP systolic 80–105; BP diastolic 49–67
[2017-03-26 07:13] LABS: BASOPHIL COUNT 0.1 K/uL (0-0.1); EOSINOPHIL COUNT 0.4 K/uL (0-0.3); HEMATOCRIT 26.2 % (36.0-46.0); IMMATURE GRANULOCYTE (%) 1.9 % (0.0-0.7); IMMATURE GRANULOCYTE COUNT 0.3 K/uL; INSTRUMENT ABS NEUTROPHIL CT 10.3 K/uL; LYMPHOCYTE COUNT 1.1 K/uL (1.0-2.8); MCH 31.8 PG (29.0-34.0); MCHC 33.2 G/DL (30.0-36.0); MCV 95.6 FL (83-99); MEAN PLAT.VOLUME 8.3 uM^3 (9.5-12.4); MONOCYTE (%) 13.7 % (3-12); MONOCYTE COUNT 1.9 K/uL (0-0.8); NEUTROPHIL (%) 73.1 % (45-76); NEUTROPHIL COUNT 10.3 K/uL (1.8-6.4); PLATELET COUNT 255 K/uL (156-360); RBC DIS.WIDTH-CV 15.9 % (11.8-14.6); RBC DIS.WIDTH-SD 55.6 % (39-53); RED BLOOD COUNT 2.74 M/uL (3.80-5.20); WHITE BLOOD COUNT 14.1 K/uL (4.1-10.2)
[2017-03-26 07:48] LABS: ALKALINE PHOSPHATASE 122 IU/L (3-129); ANION GAP 6 MEQ/L (2-14); CHLORIDE 101 MEQ/L (99-109); GFR ESTIMATE (CALCULATED) > 59 mL/min/; GLUCOSE 70 mg/dL (70-99); POTASSIUM 3.9 MEQ/L (3.7-5.4); SAMPLE HEMOLYSIS CHECK 0; SAMPLE ICTERIC CHECK 0; SAMPLE LIPEMIA CHECK 0; SODIUM 133 MEQ/L (136-147); TOTAL BILIRUBIN 0.9 MG/DL (0.0-1.0); UREA NITROGEN (BUN) 13 mg/dL (9-23); VANCOMYCIN, TROUGH 19.4 MCG/ML (10-20)
[2017-03-26 07:49] LABS: MAGNESIUM 1.3 mg/dl (1.3-2.7)
[2017-03-27 04:19] VITALS: BP 90/52
[2017-03-27 08:05] VITALS: BP 103/52
[2017-03-27 09:53] LABS: HEMATOCRIT 29.1 % (36.0-46.0); MCH 31.3 PG (29.0-34.0); MEAN PLAT.VOLUME 8.3 uM^3 (9.5-12.4); PLATELET COUNT 280 K/uL (156-360); RBC DIS.WIDTH-CV 15.6 % (11.8-14.6); RBC DIS.WIDTH-SD 56.2 % (39-53); RED BLOOD COUNT 2.97 M/uL (3.80-5.20)
[2017-03-27 10:26] LABS: ANION GAP 7 MEQ/L (2-14); CHLORIDE 100 MEQ/L (99-109); GFR ESTIMATE (CALCULATED) > 59 mL/min/; POTASSIUM 4.1 MEQ/L (3.7-5.4); SAMPLE HEMOLYSIS CHECK 0; SAMPLE ICTERIC CHECK 0; SAMPLE LIPEMIA CHECK 0; SODIUM 130 MEQ/L (136-147); UREA NITROGEN (BUN) 14 mg/dL (9-23)
[2017-03-27 10:33] LABS: GLUCOSE 99 mg/dL (70-99)
[2017-03-27 15:58] VITALS: BP 97/55
[2017-03-27 20:29] VITALS: BP 82/54
[2017-03-28 00:03] VITALS: BP 101/59
[2017-03-28 04:00] VITALS: BP 93/52
[2017-03-28 08:15] VITALS: BP 91/54
[2017-03-28 12:17] VITALS: BP 82/60
[2017-03-28 16:08] LABS: HEMATOCRIT 26.3 % (36.0-46.0); MCHC 33.5 G/DL (30.0-36.0); MCV 95.6 FL (83-99); MEAN PLAT.VOLUME 8.4 uM^3 (9.5-12.4); PLATELET COUNT 274 K/uL (156-360); RBC DIS.WIDTH-CV 15.5 % (11.8-14.6); RBC DIS.WIDTH-SD 53.6 % (39-53); RED BLOOD COUNT 2.75 M/uL (3.80-5.20); WHITE BLOOD COUNT 11.4 K/uL (4.1-10.2)
[2017-03-28 16:20] VITALS: BP 87/56
[2017-03-28 16:30] LABS: ANION GAP 5 MEQ/L (2-14); CHLORIDE 98 MEQ/L (99-109); GFR ESTIMATE (CALCULATED) > 59 mL/min/; GLUCOSE 122 mg/dL (70-99); SAMPLE HEMOLYSIS CHECK 0; SAMPLE ICTERIC CHECK 0; SAMPLE LIPEMIA CHECK 0; SODIUM 127 MEQ/L (136-147); UREA NITROGEN (BUN) 16 mg/dL (9-23)
[2017-03-28 20:25] VITALS: BP 94/54
[2017-03-29 00:13] VITALS: BP 95/51
[2017-03-29 06:39] LABS: HEMATOCRIT 26.2 % (36.0-46.0); MCHC 33.6 G/DL (30.0-36.0); MCV 95.3 FL (83-99); MEAN PLAT.VOLUME 8.6 uM^3 (9.5-12.4); PLATELET COUNT 247 K/uL (156-360); RBC DIS.WIDTH-CV 15.4 % (11.8-14.6); RBC DIS.WIDTH-SD 53.2 % (39-53); RED BLOOD COUNT 2.75 M/uL (3.80-5.20); WHITE BLOOD COUNT 10.1 K/uL (4.1-10.2)
[2017-03-29 07:05] LABS: ANION GAP 4 MEQ/L (2-14); CHLORIDE 100 MEQ/L (99-109); GFR ESTIMATE (CALCULATED) > 59 mL/min/; POTASSIUM 4.5 MEQ/L (3.7-5.4); SAMPLE HEMOLYSIS CHECK 0; SAMPLE ICTERIC CHECK 0; SAMPLE LIPEMIA CHECK 0; SODIUM 131 MEQ/L (136-147); UREA NITROGEN (BUN) 15 mg/dL (9-23)
[2017-03-29 07:16] LABS: GLUCOSE 88 mg/dL (70-99)
[2017-03-29 08:06] VITALS: BP 93/54
[2017-03-29 11:49] VITALS: BP 96/59
[2017-03-29 16:19] VITALS: BP 94/68
[2017-03-29 20:19] VITALS: BP 86/51
[2017-03-29 23:59] VITALS: BP 87/50
[2017-03-30 05:14] VITALS: BP 105/62
[2017-03-30 11:35] VITALS: BP 95/54
[2017-03-30 15:51] VITALS: BP 117/65
[2017-03-30 19:28] VITALS: BP 90/64
[2017-03-30 22:50] VITALS: BP 81/52
[2017-03-31 04:26] VITALS: BP 90/50
[2017-03-31 08:00] VITALS: BP 89/50
[2017-03-31 12:00] VITALS: BP 91/53
[2017-03-31] MEDS ORDERED: FLUCONAZOLE200 MG PO (13:11)
[2017-03-31] MEDS ORDERED: ONDANSETRON4 MG/2 ML IV (13:11)
[2017-03-31] MEDS ORDERED: ALPRAZOLAM0.5 MG PO (13:12)
[2017-03-31] MEDS ORDERED: LOPRESSOR25 MG PO (13:18)
[2017-03-31 13:27] LABS: BASOPHIL COUNT 0.1 K/uL (0-0.1); EOSINOPHIL (%) 0.5 % (0-5); EOSINOPHIL COUNT 0.1 K/uL (0-0.3); HEMATOCRIT 28.6 % (36.0-46.0); IMMATURE GRANULOCYTE (%) 1.2 % (0.0-0.7); IMMATURE GRANULOCYTE COUNT 0.2 K/uL; LYMPHOCYTE COUNT 1.3 K/uL (1.0-2.8); MCHC 33.6 G/DL (30.0-36.0); MCV 95.3 FL (83-99); MEAN PLAT.VOLUME 8.6 uM^3 (9.5-12.4); MONOCYTE (%) 11.8 % (3-12); MONOCYTE COUNT 1.6 K/uL (0-0.8); RBC DIS.WIDTH-CV 15.9 % (11.8-14.6); RBC DIS.WIDTH-SD 54.4 % (39-53); WHITE BLOOD COUNT 13.2 K/uL (4.1-10.2)
[2017-03-31 13:36] LABS: PLATELET COUNT 357 K/uL (156-360)
[2017-03-31 14:19] LABS: ANION GAP 5 MEQ/L (2-14); CHLORIDE 99 MEQ/L (99-109); GFR ESTIMATE (CALCULATED) > 59 mL/min/; POTASSIUM 4.5 MEQ/L (3.7-5.4); SAMPLE HEMOLYSIS CHECK 1; SAMPLE ICTERIC CHECK 0; SAMPLE LIPEMIA CHECK 0; SODIUM 130 MEQ/L (136-147); UREA NITROGEN (BUN) 13 mg/dL (9-23)
[2017-03-31 14:22] LABS: GLUCOSE 115 mg/dL (70-99)
== END 2017-03-31 16:32 | DRG 907 ==
LOC: EME 03:59 → 4EAST 07:38 → EDOF 07:38 → 3EAST 07:38 → ENRESERV 08:08 → 4EAST 13:35 → ENRESERV 03-09 10:52 → 2EAST 03-09 11:09 → 4EAST 03-09 11:13 → ENRESERV 03-09 11:14 → 2EAST 03-09 13:41 → ENRESERV 03-11 16:36 → 2EAST 03-11 16:43 → ENRESERV 03-11 16:45 → 4WEST 03-11 16:49 → ENRESERV 03-16 13:02 → 3EAST 03-16 15:22
PROVIDERS: Emergency Medicine; Internal Medicine Critical Care Medicine; Physician Assistant; Physician Assistant Medical; Physician Assistant Surgical; Specialist; Student in an Organized Health Care Education/Training Program; Surgery
DX: T81.32XA Disruption of internal operation (surgical) wound, not elsewhere classified, initial encounter (principal); A41.9 Sepsis, unspecified organism; R65.20 Severe sepsis without septic shock; E43 Unspecified severe protein-calorie malnutrition; E87.1 Hypo-osmolality and hyponatremia; L89.323 Pressure ulcer of left buttock, stage 3; L89.159 Pressure ulcer of sacral region, unspecified stage; K57.80 Diverticulitis of intestine, part unspecified, with perforation and abscess without bleeding; E88.09 Other disorders of plasma-protein metabolism, not elsewhere classified; E87.70 Fluid overload, unspecified; R00.0 Tachycardia, unspecified; H66.90 Otitis media, unspecified, unspecified ear; E66.9 Obesity, unspecified; Z93.3 Colostomy status; K21.9 Gastro-esophageal reflux disease without esophagitis; N73.6 Female pelvic peritoneal adhesions (postinfective); F10.10 Alcohol abuse, uncomplicated; I10 Essential (primary) hypertension; M54.9 Dorsalgia, unspecified; Y83.2 Surgical operation with anastomosis, bypass or graft as the cause of abnormal reaction of the patient, or of later complication, without mention of misadventure at the time of the procedure; Z68.31 Body mass index [BMI] 31.0-31.9, adult; K70.30 Alcoholic cirrhosis of liver without ascites; Z90.49 Acquired absence of other specified parts of digestive tract; K66.0 Peritoneal adhesions (postprocedural) (postinfection); Z23 Encounter for immunization; M54.5 Low back pain; M25.559 Pain in unspecified hip; M25.512 Pain in left shoulder; B36.9 Superficial mycosis, unspecified; L03.90 Cellulitis, unspecified; R33.9 Retention of urine, unspecified; Z79.899 Other long term (current) drug therapy; Z82.0 Family history of epilepsy and other diseases of the nervous system
CPT/HCPCS: 36600; 74176; 74177; 76937; 80048; 80053; 80076; 80202; 81003; 82565; 82803; 83605; 83690; 83735; 84100; 84443; 85025; 85025 91; 85027; 85610; 85730; 87040; 87070; 87075; 87076; 87077; 87185; 87186; 87205; 87493; 87506; 87641; 90686; 93005; 93306; 94799; 97530 GO; 97530 GP; 99281; 99285; C1753; C1755; C1894; J0295; J0696; J0744; J1170; J1650; J1885; J1940; J2250; J2270; J2405; J2543; J2710; J3010; J3370; J3475; J7030; J7050; J7120; S0030

== ENCOUNTER 2017-05-18 11:19 | Inpatient (IN) | payer BC ==
[~2017-05-18] VITALS: Ht 175.3 cm; Wt 64.3 kg
[~2017-05-18 11:19] MED LIST changes: +ALPRAZOLAM0.5 MG PO; +CEFTIN500 MG PO; +FLUCONAZOLE200 MG PO; +LOPRESSOR25 MG PO; +ONDANSETRON4 MG/2 ML IV
[2017-05-18 13:11] LABS: BASOPHIL (%) 0.8 % (0-1); BASOPHIL COUNT 0.1 K/uL (0-0.1); EOSINOPHIL COUNT 0.5 K/uL (0-0.3); HEMATOCRIT 29.9 % (36.0-46.0); HEMOGLOBIN 10.3 G/DL (11.9-15.5); LYMPHOCYTE (%) 11.7 % (15-42); LYMPHOCYTE COUNT 0.9 K/uL (1.0-2.8); MCH 29.9 PG (29.0-34.0); MCHC 34.4 G/DL (30.0-36.0); MCV 86.7 FL (83-99); MONOCYTE (%) 18.1 % (3-12); MONOCYTE COUNT 1.4 K/uL (0-0.8); NEUTROPHIL (%) 62.4 % (45-76); NEUTROPHIL COUNT 4.9 K/uL (1.8-6.4); PLATELET COUNT 232 K/uL (156-360); RBC DIS.WIDTH-CV 15.6 % (11.8-14.6); RBC DIS.WIDTH-SD 49.4 % (39-53); RED BLOOD COUNT 3.45 M/uL (3.80-5.20); WHITE BLOOD COUNT 7.8 K/uL (4.1-10.2)
[2017-05-18 13:12] LABS: CHLORIDE 96 mEq/L (99-109); POTASSIUM 4.9 mEq/L (3.7-5.4); SODIUM 124 mEq/L (136-147)
[2017-05-18 13:14] LABS: GLUCOSE 77 mg/dL (70-99)
[2017-05-18 13:18] LABS: CREATININE 0.6 mg/dL (0.6-1.3); GFR ESTIMATE (CALCULATED) > 59 mL/min/
[2017-05-18 13:19] LABS: UREA NITROGEN (BUN) 8 mg/dL (9-23)
[2017-05-18] MEDS ORDERED: MEDPASS (17:24)
[2017-05-18] MEDS ORDERED: REMERON15 M1 PO (17:27)
[2017-05-18] MEDS ORDERED: TRAMADOL HCL50 MG PO (17:28)
[2017-05-18] MEDS ORDERED: BUSPAR5 MG PO (17:30)
[2017-05-18] MEDS ORDERED: FERRETTS325 MG PO ×2 (17:32→17:34)
[2017-05-18] MEDS ORDERED: SODIUM CHLORIDE1 G1 PO (17:35)
[2017-05-18] MEDS ORDERED: TYLENOL REGULA325 MG PO (17:37)
[2017-05-18] MEDS ORDERED: ADVIL,NUPRIN,M200 MG PO (17:42)
[2017-05-18 23:42] LABS: APPEARANCE SL.HAZY ((CLEAR)); BILIRUBIN NEGATIVE; BLOOD NEGATIVE; COLOR YELLOW ((YELLOW)); GLUCOSE (STRIP) NEGATIVE; KETONES NEGATIVE; LEUKOCYTES SMALL; NITRITE NEGATIVE; PROTEIN (STRIP) NEGATIVE; UROBILINOGEN 0.2 MG/DL (0.2-1.0)
[2017-05-18 23:58] LABS: BACTERIA RARE /HPF; EPITHELIAL CELLS RARE /HPF; MUCUS TRACE /LPF; RED BLOOD CELLS 0-5 /HPF (0-5); UCUL ADDED? YES
[2017-05-19] VITALS (7 sets, daily range): BP systolic 76–102; BP diastolic 5–62
[2017-05-20 01:58] VITALS: BP 88/44
[2017-05-20 04:14] VITALS: BP 90/46
[2017-05-20 08:00] VITALS: BP 78/53
[2017-05-20 10:44] LABS: BASOPHIL (%) 0.3 % (0-1); EOSINOPHIL (%) 5.8 % (0-5); EOSINOPHIL COUNT 0.3 K/uL (0-0.3); HEMATOCRIT 29.1 % (36.0-46.0); HEMOGLOBIN 9.5 G/DL (11.9-15.5); IMMATURE GRANULOCYTE (%) 0.7 % (0.0-0.7); LYMPHOCYTE (%) 15.9 % (15-42); LYMPHOCYTE COUNT 0.9 K/uL (1.0-2.8); MCH 29.1 PG (29.0-34.0); MCHC 32.6 G/DL (30.0-36.0); MCV 89.3 FL (83-99); MONOCYTE COUNT 0.8 K/uL (0-0.8); NEUTROPHIL (%) 63.3 % (45-76); NEUTROPHIL COUNT 3.7 K/uL (1.8-6.4); PLATELET COUNT 170 K/uL (156-360); RBC DIS.WIDTH-SD 52.6 % (39-53); RED BLOOD COUNT 3.26 M/uL (3.80-5.20); WHITE BLOOD COUNT 5.8 K/uL (4.1-10.2)
[2017-05-20 11:15] LABS: CREATININE 0.6 MG/DL (0.6-1.3); GFR ESTIMATE (CALCULATED) > 59 mL/min/; MAGNESIUM 1.2 mg/dl (1.3-2.7); UREA NITROGEN (BUN) 6 mg/dL (9-23)
[2017-05-20 11:17] LABS: CHLORIDE 104 MEQ/L (99-109); GLUCOSE 139 mg/dL (70-99); SODIUM 133 MEQ/L (136-147)
[2017-05-20 11:58] VITALS: BP 78/49
[2017-05-20 12:22] LABS: HEPATITIS C ANTIBODY Nonreactive
[2017-05-20 16:00] VITALS: BP 106/57
[2017-05-20 23:54] VITALS: BP 89/57
[2017-05-21 06:14] LABS: BASOPHIL (%) 0.4 % (0-1); EOSINOPHIL (%) 7.7 % (0-5); EOSINOPHIL COUNT 0.4 K/uL (0-0.3); HEMATOCRIT 26.8 % (36.0-46.0); HEMOGLOBIN 9.1 G/DL (11.9-15.5); IMMATURE GRANULOCYTE (%) 0.6 % (0.0-0.7); LYMPHOCYTE (%) 19.7 % (15-42); LYMPHOCYTE COUNT 1.1 K/uL (1.0-2.8); MCH 29.5 PG (29.0-34.0); MONOCYTE (%) 15.3 % (3-12); MONOCYTE COUNT 0.8 K/uL (0-0.8); NEUTROPHIL (%) 56.3 % (45-76); NEUTROPHIL COUNT 3.1 K/uL (1.8-6.4); PLATELET COUNT 164 K/uL (156-360); RBC DIS.WIDTH-SD 50.7 % (39-53); RED BLOOD COUNT 3.08 M/uL (3.80-5.20); WHITE BLOOD COUNT 5.4 K/uL (4.1-10.2)
[2017-05-21 06:27] LABS: CHLORIDE 108 MEQ/L (99-109); CREATININE 0.5 MG/DL (0.6-1.3); GFR ESTIMATE (CALCULATED) > 59 mL/min/; PHOSPHORUS 2.9 mg/dL (2.5-4.9); POTASSIUM 3.4 MEQ/L (3.7-5.4); SODIUM 132 MEQ/L (136-147); UREA NITROGEN (BUN) 4 mg/dL (9-23)
[2017-05-21 06:31] LABS: GLUCOSE 74 mg/dL (70-99); MAGNESIUM 1.5 mg/dl (1.3-2.7)
[2017-05-21 07:46] VITALS: BP 96/55
[2017-05-21 16:28] VITALS: BP 92/53
[2017-05-21 23:47] VITALS: BP 89/50
[2017-05-22 05:38] VITALS: BP 98/68
[2017-05-22 06:28] LABS: BASOPHIL (%) 0.4 % (0-1); EOSINOPHIL (%) 7.3 % (0-5); EOSINOPHIL COUNT 0.4 K/uL (0-0.3); HEMATOCRIT 26.1 % (36.0-46.0); HEMOGLOBIN 8.7 G/DL (11.9-15.5); IMMATURE GRANULOCYTE (%) 0.7 % (0.0-0.7); LYMPHOCYTE (%) 15.6 % (15-42); LYMPHOCYTE COUNT 0.8 K/uL (1.0-2.8); MCH 28.8 PG (29.0-34.0); MCHC 33.3 G/DL (30.0-36.0); MCV 86.4 FL (83-99); MONOCYTE (%) 11.4 % (3-12); MONOCYTE COUNT 0.6 K/uL (0-0.8); NEUTROPHIL (%) 64.6 % (45-76); NEUTROPHIL COUNT 3.5 K/uL (1.8-6.4); PLATELET COUNT 160 K/uL (156-360); RBC DIS.WIDTH-CV 15.9 % (11.8-14.6); RBC DIS.WIDTH-SD 50.2 % (39-53); RED BLOOD COUNT 3.02 M/uL (3.80-5.20); WHITE BLOOD COUNT 5.4 K/uL (4.1-10.2)
[2017-05-22 06:43] LABS: CHLORIDE 108 MEQ/L (99-109); CREATININE 0.5 MG/DL (0.6-1.3); GFR ESTIMATE (CALCULATED) > 59 mL/min/; GLUCOSE 75 mg/dL (70-99); POTASSIUM 3.8 MEQ/L (3.7-5.4); SODIUM 132 MEQ/L (136-147); UREA NITROGEN (BUN) 4 mg/dL (9-23)
[2017-05-22 07:24] VITALS: BP 91/51
[2017-05-22 15:15] VITALS: BP 97/52
[2017-05-22 23:27] VITALS: BP 81/49
[2017-05-23 00:40] VITALS: BP 86/62
[2017-05-23 04:12] VITALS: BP 90/60
[2017-05-23 08:44] VITALS: BP 101/55
[2017-05-23 16:41] VITALS: BP 99/54
[2017-05-23 23:38] VITALS: BP 86/51
[2017-05-24 01:00] VITALS: BP 101/75
[2017-05-24 08:21] VITALS: BP 82/52
[2017-05-24 10:06] LABS: ALBUMIN 1.7 G/DL (3.2-4.8); ALKALINE PHOSPHATASE 59 IU/L (3-129); ALT (GPT) 18 IU/L (3-49); AST (GOT) 39 IU/L (2-34); CHLORIDE 105 MEQ/L (99-109); CREATININE 0.5 MG/DL (0.6-1.3); GFR ESTIMATE (CALCULATED) > 59 mL/min/; GLUCOSE 72 mg/dL (70-99); POTASSIUM 3.8 MEQ/L (3.7-5.4); SODIUM 131 MEQ/L (136-147); TOTAL BILIRUBIN 0.6 MG/DL (0.0-1.0); UREA NITROGEN (BUN) 6 mg/dL (9-23)
[2017-05-24 15:56] VITALS: BP 89/53
[2017-05-24 23:53] VITALS: BP 90/53
[2017-05-25 08:54] VITALS: BP 97/58
[2017-05-25 16:38] VITALS: BP 100/58
[2017-05-25 23:36] VITALS: BP 95/51
[2017-05-26 08:52] VITALS: BP 98/59
[2017-05-26] MEDS ORDERED: MIDODRINE HCL5 MG PO (12:31)
[2017-05-26] MEDS ORDERED: CYCLOBENZAPRINE10 MG PO (12:31)
[2017-05-26] MEDS ORDERED: ALPRAZOLAM0.25 M2 PO (12:35)
== END 2017-05-26 13:55 | DRG 641 ==
LOC: EME 11:19 → 4SOUTH 14:25 → EDOF 14:25 → ENRESERV 15:06 → 4SOUTH 23:39
PROVIDERS: Emergency Medicine; Family Medicine; Internal Medicine Nephrology
DX: E87.1 Hypo-osmolality and hyponatremia (principal); E22.2 Syndrome of inappropriate secretion of antidiuretic hormone; I10 Essential (primary) hypertension; G89.4 Chronic pain syndrome; F32.9 Major depressive disorder, single episode, unspecified; F41.9 Anxiety disorder, unspecified; N82.3 Fistula of vagina to large intestine; R63.0 Anorexia; K74.60 Unspecified cirrhosis of liver; L89.101 Pressure ulcer of unspecified part of back, stage 1; I95.9 Hypotension, unspecified; F91.9 Conduct disorder, unspecified; E83.42 Hypomagnesemia; R53.81 Other malaise; R63.4 Abnormal weight loss; R19.7 Diarrhea, unspecified; E87.6 Hypokalemia; E87.2 Acidosis; R53.1 Weakness; Z87.891 Personal history of nicotine dependence; Z74.01 Bed confinement status; Z93.3 Colostomy status; Z88.1 Allergy status to other antibiotic agents; Z87.19 Personal history of other diseases of the digestive system; Z88.8 Allergy status to other drugs, medicaments and biological substances; Z91.14 Patient's other noncompliance with medication regimen; Z82.0 Family history of epilepsy and other diseases of the nervous system; Y92.9 Unspecified place or not applicable; Z68.20 Body mass index [BMI] 20.0-20.9, adult; Z75.1 Person awaiting admission to adequate facility elsewhere; T39.395A Adverse effect of other nonsteroidal anti-inflammatory drugs [NSAID], initial encounter
CPT/HCPCS: 36415; 71046; 74177; 80048; 80048 91; 80053; 81003; 82533 91; 82948; 83735; 83935; 84100; 84134; 84300; 85025; 86803; 87040; 87086; 97530 GP; 99281; 99285; A6214; C1753; J3475; J7030; J7040

== ENCOUNTER 2017-07-08 15:37 | Inpatient (IN) | payer BC ==
[~2017-07-08] VITALS: Ht 170.2 cm; Wt 75.2 kg
[~2017-07-08 15:37] MED LIST changes: +ADVIL,NUPRIN,M200 MG PO; +ALPRAZOLAM0.25 M2 PO; +BOOST PLUS237 ML PO; +BUSPAR5 MG PO; +CORTIZONE-10 PL57 GM TP; +CYCLOBENZAPRINE10 MG PO; +DULCOLAX10 MG PR; +DUONEB 2.5-0.5 M3 ML PEP; +FERRETTS325 MG PO; +FLAGYL500 MG PO; +FLEET MINERAL133 ML PR; +FLEXERIL5 MG PO; +IRON325 M1 PO; +MEDPASS; +MIDODRINE HCL5 MG PO; +MILK OF MAGN PO; +NEOMYCIN SULFA500 MG PO; +PRO HEAL PO; +PROAMATINE2.5 MG PO; +PRUNE JUICE PO; +REMERON15 M1 PO; +ROXICODONE5 MG PO; +SODIUM CHLORIDE1 G1 PO; +SUPPLEMENT PO; +TRAMADOL HCL50 MG PO; +TYLENOL REGULA325 MG PO; +VITAMIN C500 M6 PO; +XANAX0.5 MG PO; +XARELTO20 MG PO
[2017-07-08 16:39] LABS: BASOPHIL (%) 0.2 % (0-1); EOSINOPHIL (%) 1.1 % (0-5); EOSINOPHIL COUNT 0.1 K/uL (0-0.3); HEMOGLOBIN 8.2 G/DL (11.9-15.5); IMMATURE GRANULOCYTE (%) 0.6 % (0.0-0.7); LYMPHOCYTE (%) 12.2 % (15-42); MCH 31.1 PG (29.0-34.0); MCHC 34.2 G/DL (30.0-36.0); MCV 90.9 FL (83-99); MONOCYTE (%) 13.6 % (3-12); MONOCYTE COUNT 1.1 K/uL (0-0.8); NEUTROPHIL (%) 72.3 % (45-76); PLATELET COUNT 282 K/uL (156-360); RBC DIS.WIDTH-CV 18.3 % (11.8-14.6); RBC DIS.WIDTH-SD 60.7 % (39-53); RED BLOOD COUNT 2.64 M/uL (3.80-5.20); WHITE BLOOD COUNT 8.3 K/uL (4.1-10.2)
[2017-07-08 16:47] LABS: ALBUMIN 2.4 g/dL (3.2-4.8); CHLORIDE 100 mEq/L (99-109); POTASSIUM 3.5 mEq/L (3.7-5.4); SODIUM 129 mEq/L (136-147)
[2017-07-08 16:50] LABS: GLUCOSE 87 mg/dL (70-99); TOTAL PROTEIN 7.2 g/dL (6.4-8.3)
[2017-07-08 16:51] LABS: TOTAL BILIRUBIN 0.7 mg/dL (0.0-1.0)
[2017-07-08 16:53] LABS: ALKALINE PHOSPHATASE 75 IU/L (3-129); CREATININE 0.7 mg/dL (0.6-1.3); GFR ESTIMATE (CALCULATED) > 59 mL/min/
[2017-07-08 16:54] LABS: UREA NITROGEN (BUN) 18 mg/dL (9-23)
[2017-07-08 16:55] LABS: AST (GOT) 38 IU/L (2-34)
[2017-07-08 16:56] LABS: ALT (GPT) 21 IU/L (3-49)
[2017-07-08 17:52] LABS: APPEARANCE CLOUDY ((CLEAR)); BILIRUBIN NEGATIVE; BLOOD NEGATIVE; COLOR AMBER ((YELLOW)); GLUCOSE (STRIP) NEGATIVE; KETONES NEGATIVE; LEUKOCYTES LARGE; NITRITE NEGATIVE; PROTEIN (STRIP) 30; SPECIFIC GRAVITY 1.018 (1.000-1.030); UROBILINOGEN 0.2 MG/DL (0.2-1.0)
[2017-07-08 18:28] LABS: EPITHELIAL CELLS RARE /HPF; MUCUS NONE SEEN /LPF; RED BLOOD CELLS NONE SEEN /HPF (0-5); WHITE BLOOD CELLS TNTC /HPF (0-5)
[2017-07-08 18:29] LABS: BACTERIA 2+ /HPF; UCUL ADDED? YES
[2017-07-08 18:30] LABS: CALCIUM OXALATE CRYSTALS 1+ /HPF
[2017-07-08] MEDS ORDERED: DULCOLAX10 MG PR (20:54)
[2017-07-08] MEDS ORDERED: PHILLIPS'400 MG/5 M PO (20:55)
[2017-07-08] MEDS ORDERED: FLEET ENEMA-AD118 ML PR (20:55)
[2017-07-08 23:45] VITALS: BP 93/56
[2017-07-09] VITALS (16 sets, daily range): BP systolic 83–137; BP diastolic 51–75
[2017-07-09 05:10] LABS: HEMATOCRIT 23.8 % (36.0-46.0); MCH 30.9 PG (29.0-34.0); MCHC 33.6 G/DL (30.0-36.0); MCV 91.9 FL (83-99); PLATELET COUNT 248 K/uL (156-360); RBC DIS.WIDTH-CV 18.4 % (11.8-14.6); RBC DIS.WIDTH-SD 61.6 % (39-53); RED BLOOD COUNT 2.59 M/uL (3.80-5.20); WHITE BLOOD COUNT 7.5 K/uL (4.1-10.2)
[2017-07-09 08:41] LABS: INTER. NORMALIZED RATIO 1.3
[2017-07-09 08:44] LABS: PTT 28.8 SEC (25-37)
[2017-07-09 09:37] LABS: ALBUMIN 2.1 G/DL (3.2-4.8); CHLORIDE 105 MEQ/L (99-109); MAGNESIUM 1.7 mg/dl (1.3-2.7); POTASSIUM 3.4 MEQ/L (3.7-5.4); SODIUM 135 MEQ/L (136-147)
[2017-07-09 09:43] LABS: ALKALINE PHOSPHATASE 56 IU/L (3-129); ALT (GPT) 15 IU/L (3-49); AST (GOT) 26 IU/L (2-34); CREATININE 0.5 MG/DL (0.6-1.3); GFR ESTIMATE (CALCULATED) > 59 mL/min/; GLUCOSE 92 mg/dL (70-99); PHOSPHORUS 3.7 mg/dL (2.5-4.9); TOTAL PROTEIN 6.3 G/DL (6.4-8.3); UREA NITROGEN (BUN) 13 mg/dL (9-23)
[2017-07-09 09:45] LABS: TOTAL BILIRUBIN 0.5 MG/DL (0.0-1.0)
[2017-07-10] VITALS (22 sets, daily range): BP systolic 82–114; BP diastolic 46–76
[2017-07-10 06:51] LABS: BASOPHIL (%) 0.4 % (0-1); EOSINOPHIL (%) 4.9 % (0-5); EOSINOPHIL COUNT 0.3 K/uL (0-0.3); HEMATOCRIT 23.7 % (36.0-46.0); HEMOGLOBIN 7.6 G/DL (11.9-15.5); IMMATURE GRANULOCYTE (%) 0.6 % (0.0-0.7); LYMPHOCYTE (%) 14.2 % (15-42); LYMPHOCYTE COUNT 0.8 K/uL (1.0-2.8); MCHC 32.1 G/DL (30.0-36.0); MCV 93.7 FL (83-99); MONOCYTE COUNT 0.8 K/uL (0-0.8); NEUTROPHIL (%) 64.9 % (45-76); NEUTROPHIL COUNT 3.4 K/uL (1.8-6.4); PLATELET COUNT 260 K/uL (156-360); RBC DIS.WIDTH-CV 18.2 % (11.8-14.6); RBC DIS.WIDTH-SD 62.9 % (39-53); RED BLOOD COUNT 2.53 M/uL (3.80-5.20); WHITE BLOOD COUNT 5.3 K/uL (4.1-10.2)
[2017-07-10 07:10] LABS: PHOSPHORUS 3.3 mg/dL (2.5-4.9)
[2017-07-10 07:11] LABS: MAGNESIUM 1.4 mg/dl (1.3-2.7)
[2017-07-10 07:21] LABS: TOTAL BILIRUBIN 0.6 MG/DL (0.0-1.0)
[2017-07-10 08:29] LABS: ALBUMIN 1.9 G/DL (3.2-4.8); ALKALINE PHOSPHATASE 49 IU/L (3-129); ALT (GPT) 13 IU/L (3-49); AST (GOT) 25 IU/L (2-34); CHLORIDE 103 MEQ/L (99-109); CREATININE 0.5 MG/DL (0.6-1.3); GFR ESTIMATE (CALCULATED) > 59 mL/min/; GLUCOSE 73 mg/dL (70-99); POTASSIUM 3.2 MEQ/L (3.7-5.4); SODIUM 133 MEQ/L (136-147); TOTAL PROTEIN 5.8 G/DL (6.4-8.3); UREA NITROGEN (BUN) 10 mg/dL (9-23)
[2017-07-11] VITALS (17 sets, daily range): BP systolic 89–145; BP diastolic 50–66
[2017-07-11 05:56] LABS: BASOPHIL (%) 0.2 % (0-1); EOSINOPHIL COUNT 0.3 K/uL (0-0.3); HEMATOCRIT 23.1 % (36.0-46.0); HEMOGLOBIN 7.5 G/DL (11.9-15.5); IMMATURE GRANULOCYTE (%) 0.7 % (0.0-0.7); LYMPHOCYTE (%) 15.4 % (15-42); LYMPHOCYTE COUNT 0.9 K/uL (1.0-2.8); MCH 30.9 PG (29.0-34.0); MCHC 32.5 G/DL (30.0-36.0); MCV 95.1 FL (83-99); MONOCYTE (%) 10.6 % (3-12); MONOCYTE COUNT 0.6 K/uL (0-0.8); NEUTROPHIL (%) 68.1 % (45-76); NEUTROPHIL COUNT 4.1 K/uL (1.8-6.4); PLATELET COUNT 235 K/uL (156-360); RBC DIS.WIDTH-CV 18.1 % (11.8-14.6); RBC DIS.WIDTH-SD 63.5 % (39-53); RED BLOOD COUNT 2.43 M/uL (3.80-5.20); WHITE BLOOD COUNT 6.1 K/uL (4.1-10.2)
[2017-07-11 06:22] LABS: ALBUMIN 2.5 G/DL (3.2-4.8); ALKALINE PHOSPHATASE 46 IU/L (3-129); ALT (GPT) 11 IU/L (3-49); AST (GOT) 22 IU/L (2-34); CHLORIDE 103 MEQ/L (99-109); CREATININE 0.5 MG/DL (0.6-1.3); GFR ESTIMATE (CALCULATED) > 59 mL/min/; GLUCOSE 81 mg/dL (70-99); MAGNESIUM 1.5 mg/dl (1.3-2.7); PHOSPHORUS 3.1 mg/dL (2.5-4.9); POTASSIUM 3.6 MEQ/L (3.7-5.4); SODIUM 133 MEQ/L (136-147); TOTAL BILIRUBIN 0.7 MG/DL (0.0-1.0); TOTAL PROTEIN 5.8 G/DL (6.4-8.3); UREA NITROGEN (BUN) 9 mg/dL (9-23)
[2017-07-12 06:03] VITALS: BP 98/55
[2017-07-12 06:58] LABS: CHLORIDE 100 MEQ/L (99-109); CREATININE 0.5 MG/DL (0.6-1.3); GFR ESTIMATE (CALCULATED) > 59 mL/min/; GLUCOSE 84 mg/dL (70-99); POTASSIUM 3.3 MEQ/L (3.7-5.4); SODIUM 131 MEQ/L (136-147); UREA NITROGEN (BUN) 8 mg/dL (9-23)
[2017-07-12 08:13] VITALS: BP 107/57
[2017-07-12 11:20] VITALS: BP 109/57
[2017-07-12 16:33] VITALS: BP 112/57
[2017-07-12 19:35] VITALS: BP 109/56
[2017-07-12 23:40] VITALS: BP 102/55
[2017-07-13 03:27] VITALS: BP 105/59
[2017-07-13 06:27] VITALS: BP 110/70
[2017-07-13 07:01] LABS: HEMATOCRIT 23.7 % (36.0-46.0); MCH 31.6 PG (29.0-34.0); MCHC 33.8 G/DL (30.0-36.0); MCV 93.7 FL (83-99); PLATELET COUNT 241 K/uL (156-360); RBC DIS.WIDTH-CV 17.3 % (11.8-14.6); RBC DIS.WIDTH-SD 59.7 % (39-53); RED BLOOD COUNT 2.53 M/uL (3.80-5.20); WHITE BLOOD COUNT 7.3 K/uL (4.1-10.2)
[2017-07-13 09:24] VITALS: BP 98/62
[2017-07-13 09:49] VITALS: BP 100/60
[2017-07-13 16:12] VITALS: BP 102/60; BP 140/78
[2017-07-14 01:32] VITALS: BP 98/60
[2017-07-14 04:29] VITALS: BP 105/59
[2017-07-14 07:12] LABS: HEMATOCRIT 22.9 % (36.0-46.0); HEMOGLOBIN 7.5 G/DL (11.9-15.5); MCH 30.9 PG (29.0-34.0); MCHC 32.8 G/DL (30.0-36.0); MCV 94.2 FL (83-99); PLATELET COUNT 238 K/uL (156-360); RBC DIS.WIDTH-CV 17.2 % (11.8-14.6); RBC DIS.WIDTH-SD 59.2 % (39-53); RED BLOOD COUNT 2.43 M/uL (3.80-5.20); WHITE BLOOD COUNT 5.2 K/uL (4.1-10.2)
[2017-07-14 07:49] LABS: ALBUMIN 2.2 G/DL (3.2-4.8); ALKALINE PHOSPHATASE 41 IU/L (3-129); ALT (GPT) 10 IU/L (3-49); AST (GOT) 19 IU/L (2-34); CHLORIDE 102 MEQ/L (99-109); CREATININE 0.5 MG/DL (0.6-1.3); GFR ESTIMATE (CALCULATED) > 59 mL/min/; GLUCOSE 88 mg/dL (70-99); POTASSIUM 3.3 MEQ/L (3.7-5.4); SODIUM 133 MEQ/L (136-147); TOTAL BILIRUBIN 0.7 MG/DL (0.0-1.0); TOTAL PROTEIN 5.3 G/DL (6.4-8.3); UREA NITROGEN (BUN) 9 mg/dL (9-23)
[2017-07-14 08:30] VITALS: BP 106/95
[2017-07-14 11:49] VITALS: BP 102/57
[2017-07-14 17:07] VITALS: BP 103/59
[2017-07-14 19:55] VITALS: BP 107/58
[2017-07-15] VITALS: BP 94/55
[2017-07-15 09:07] VITALS: BP 95/60
[2017-07-15 16:00] VITALS: BP 92/58
[2017-07-16] VITALS: BP 102/55
[2017-07-16 08:23] LABS: HEMATOCRIT 23.4 % (36.0-46.0); HEMOGLOBIN 7.7 G/DL (11.9-15.5); MCH 30.9 PG (29.0-34.0); MCHC 32.9 G/DL (30.0-36.0); PLATELET COUNT 276 K/uL (156-360); RBC DIS.WIDTH-CV 17.3 % (11.8-14.6); RBC DIS.WIDTH-SD 60.2 % (39-53); RED BLOOD COUNT 2.49 M/uL (3.80-5.20); WHITE BLOOD COUNT 5.5 K/uL (4.1-10.2)
[2017-07-16 08:30] VITALS: BP 118/62
[2017-07-16 16:34] VITALS: BP 110/60
[2017-07-16 23:26] VITALS: BP 91/57
[2017-07-17 04:17] VITALS: BP 117/60
[2017-07-17 06:21] LABS: HEMATOCRIT 22.2 % (36.0-46.0); HEMOGLOBIN 7.2 G/DL (11.9-15.5); MCH 30.8 PG (29.0-34.0); MCHC 32.4 G/DL (30.0-36.0); MCV 94.9 FL (83-99); PLATELET COUNT 280 K/uL (156-360); RBC DIS.WIDTH-CV 17.3 % (11.8-14.6); RBC DIS.WIDTH-SD 59.7 % (39-53); RED BLOOD COUNT 2.34 M/uL (3.80-5.20); WHITE BLOOD COUNT 5.3 K/uL (4.1-10.2)
[2017-07-17 06:32] LABS: CHLORIDE 108 MEQ/L (99-109); CREATININE 0.5 MG/DL (0.6-1.3); GFR ESTIMATE (CALCULATED) > 59 mL/min/; GLUCOSE 75 mg/dL (70-99); POTASSIUM 3.6 MEQ/L (3.7-5.4); SODIUM 137 MEQ/L (136-147); UREA NITROGEN (BUN) 9 mg/dL (9-23)
[2017-07-17 06:56] LABS: ANISOCYTOSIS 1+; BASOPHIL (%) 0.4 % (0-1); EOSINOPHIL (%) 6.7 % (0-5); EOSINOPHIL COUNT 0.4 K/uL (0-0.3); IMMATURE GRANULOCYTE (%) 0.8 % (0.0-0.7); LYMPHOCYTE (%) 23.4 % (15-42); LYMPHOCYTE COUNT 1.2 K/uL (1.0-2.8); MACROCYTES 1+; MONOCYTE (%) 11.4 % (3-12); MONOCYTE COUNT 0.6 K/uL (0-0.8); NEUTROPHIL (%) 57.3 % (45-76); POLYCHROMASIA 1+
[2017-07-17 08:36] VITALS: BP 110/64
[2017-07-17 16:45] VITALS: BP 118/70
[2017-07-17] MEDS ORDERED: AUGMENTIN875 MG PO (17:03)
[2017-07-17 19:50] VITALS: BP 157/88
[2017-07-17 23:48] VITALS: BP 104/56
[2017-07-18 08:36] VITALS: BP 106/68
== END 2017-07-18 12:54 | DRG 871 ==
LOC: EME 15:37 → EDOF 20:38 → 3EAST 20:38 → 4WEST 20:38 → ENRESERV 20:43 → 3EAST 22:03 → CANRESERV 07-09 08:21 → ENRESERV 07-09 08:21 → 4WEST 07-09 09:16 → ENRESERV 07-11 14:39 → 3EAST 07-11 16:12
PROVIDERS: Emergency Medicine; Family Medicine; Internal Medicine; Internal Medicine Critical Care Medicine; Physician Assistant; Radiology Diagnostic Radiology; Surgery
PROC: 02HV33Z Insertion of Infusion Device into Superior Vena Cava, Percutaneous Approach (ICD-10-PCS; principal; 2017-07-09)
PROC: 0W9H30Z Drainage of Retroperitoneum with Drainage Device, Percutaneous Approach (ICD-10-PCS; principal; 2017-07-09)
DX: A41.9 Sepsis, unspecified organism (principal); K68.12 Psoas muscle abscess; N82.3 Fistula of vagina to large intestine; E86.9 Volume depletion, unspecified; E46 Unspecified protein-calorie malnutrition; E83.42 Hypomagnesemia; J90 Pleural effusion, not elsewhere classified; Z93.2 Ileostomy status; D64.9 Anemia, unspecified; Z93.3 Colostomy status; Z68.25 Body mass index [BMI] 25.0-25.9, adult; E87.1 Hypo-osmolality and hyponatremia; K43.9 Ventral hernia without obstruction or gangrene; K74.60 Unspecified cirrhosis of liver; E87.6 Hypokalemia; I10 Essential (primary) hypertension; N39.0 Urinary tract infection, site not specified; J98.11 Atelectasis; N82.8 Other female genital tract fistulae; N73.9 Female pelvic inflammatory disease, unspecified; K57.80 Diverticulitis of intestine, part unspecified, with perforation and abscess without bleeding; I87.2 Venous insufficiency (chronic) (peripheral); Z90.49 Acquired absence of other specified parts of digestive tract; Z87.891 Personal history of nicotine dependence; Z86.718 Personal history of other venous thrombosis and embolism; Z82.0 Family history of epilepsy and other diseases of the nervous system
CPT/HCPCS: 10030; 71045; 71046; 74177; 80048; 80053; 80202; 81003; 83605; 83735; 83880; 84100; 85025; 85027; 85610; 85730; 86850; 86900; 86901; 86920; 87040; 87070; 87075; 87076; 87185; 87205; 87502; 87641; 93005; 97530 GO; 99202; 99281; 99285; C1729; C1751; C1755; J0696; J1170; J1650; J2543; J3010; J3370; J7030; J7040; J7050; J7120; P9047

== ENCOUNTER 2017-07-09 11:28 | Inpatient (IN) | payer BC ==
[~2017-07-09] VITALS: Ht 182.9 cm; Wt 93.2 kg
[~2017-07-09 11:28] MED LIST changes: +FLEET ENEMA-AD118 ML PR; +PHILLIPS'400 MG/5 M PO; -SUPPLEMENT PO; +[UNRECOGNIZED DRUG - OTHER] PO
[2017-07-17] MEDS ORDERED: AUGMENTIN875 MG PO (17:03)
[2017-07-28] MEDS ORDERED: IRON325 M1 PO (16:11)
[2017-07-28] MEDS ORDERED: SUPPLEMENT PO (16:13)
[2017-07-28] MEDS ORDERED: FLAGYL500 MG PO (16:16)
[2017-07-28] MEDS ORDERED: NEOMYCIN SULFA500 MG PO (16:17)
[2017-07-28] MEDS ORDERED: PRUNE JUICE PO (16:20)
[2017-07-31] VITALS (22 sets, daily range): BP systolic 93–157; BP diastolic 50–91
[2017-07-31 12:17] LABS: BASOPHIL (%) 0.2 % (0-1); EOSINOPHIL (%) 0.9 % (0-5); EOSINOPHIL COUNT 0.1 K/uL (0-0.3); HEMATOCRIT 24.2 % (36.0-46.0); HEMOGLOBIN 7.7 G/DL (11.9-15.5); IMMATURE GRANULOCYTE (%) 0.7 % (0.0-0.7); LYMPHOCYTE (%) 5.8 % (15-42); LYMPHOCYTE COUNT 0.8 K/uL (1.0-2.8); MCH 30.8 PG (29.0-34.0); MCHC 31.8 G/DL (30.0-36.0); MCV 96.8 FL (83-99); MONOCYTE (%) 2.9 % (3-12); MONOCYTE COUNT 0.4 K/uL (0-0.8); NEUTROPHIL (%) 89.5 % (45-76); PLATELET COUNT 258 K/uL (156-360); RBC DIS.WIDTH-CV 15.3 % (11.8-14.6); RBC DIS.WIDTH-SD 54.5 % (39-53); WHITE BLOOD COUNT 13.4 K/uL (4.1-10.2)
[2017-07-31 12:22] LABS: INTER. NORMALIZED RATIO 1.4
[2017-07-31 12:25] LABS: PTT 34.1 SEC (25-37)
[2017-07-31 12:51] LABS: CHLORIDE 109 mEq/L (99-109); POTASSIUM 4.1 mEq/L (3.7-5.4); SODIUM 136 mEq/L (136-147)
[2017-07-31 12:53] LABS: GLUCOSE 138 mg/dL (70-99)
[2017-07-31 12:57] LABS: CREATININE 0.7 mg/dL (0.6-1.3); GFR ESTIMATE (CALCULATED) > 59 mL/min/
[2017-07-31 12:58] LABS: UREA NITROGEN (BUN) 17 mg/dL (9-23)
[2017-07-31 14:19] LABS: BASOPHIL (%) 0.2 % (0-1); EOSINOPHIL (%) 0.9 % (0-5); EOSINOPHIL COUNT 0.1 K/uL (0-0.3); HEMATOCRIT 24.2 % (36.0-46.0); HEMOGLOBIN 7.7 G/DL (11.9-15.5); IMMATURE GRANULOCYTE (%) 0.7 % (0.0-0.7); LYMPHOCYTE (%) 5.8 % (15-42); LYMPHOCYTE COUNT 0.8 K/uL (1.0-2.8); MCH 30.8 PG (29.0-34.0); MCHC 31.8 G/DL (30.0-36.0); MCV 96.8 FL (83-99); MONOCYTE (%) 2.9 % (3-12); MONOCYTE COUNT 0.4 K/uL (0-0.8); NEUTROPHIL (%) 89.5 % (45-76); PLATELET COUNT 258 K/uL (156-360); RBC DIS.WIDTH-CV 15.3 % (11.8-14.6); RBC DIS.WIDTH-SD 54.5 % (39-53); WHITE BLOOD COUNT 13.4 K/uL (4.1-10.2)
[2017-07-31 14:21] LABS: INTER. NORMALIZED RATIO 1.4
[2017-07-31 16:03] LABS: INTER. NORMALIZED RATIO 1.4
[2017-07-31 16:05] LABS: PTT 33.6 SEC (25-37)
[2017-07-31 16:08] LABS: FIBRINOGEN 129 mg/dL (150-450)
[2017-07-31 16:14] LABS: ALBUMIN 1.8 G/DL (3.2-4.8); ALKALINE PHOSPHATASE 30 IU/L (3-129); ALT (GPT) 10 IU/L (3-49); AST (GOT) 18 IU/L (2-34); CHLORIDE 109 MEQ/L (99-109); CREATININE 0.7 MG/DL (0.6-1.3); GFR ESTIMATE (CALCULATED) > 59 mL/min/; GLUCOSE 159 mg/dL (70-99); MAGNESIUM 1.5 mg/dl (1.3-2.7); PHOSPHORUS 4.2 mg/dL (2.5-4.9); POTASSIUM 3.9 MEQ/L (3.7-5.4); SODIUM 136 MEQ/L (136-147); TOTAL BILIRUBIN 0.8 MG/DL (0.0-1.0); TOTAL PROTEIN 3.9 G/DL (6.4-8.3); UREA NITROGEN (BUN) 14 mg/dL (9-23)
[2017-07-31 16:24] LABS: BASOPHIL (%) 0.1 % (0-1); EOSINOPHIL (%) 0.1 % (0-5); HEMATOCRIT 25.3 % (36.0-46.0); HEMATOLOGY COMMENT 1 SN; HEMOGLOBIN 8.4 G/DL (11.9-15.5); IMMATURE GRANULOCYTE (%) 2.3 % (0.0-0.7); LYMPHOCYTE (%) 4.1 % (15-42); LYMPHOCYTE COUNT 0.6 K/uL (1.0-2.8); MCH 30.1 PG (29.0-34.0); MCHC 33.2 G/DL (30.0-36.0); MCV 90.7 FL (83-99); MONOCYTE (%) 6.4 % (3-12); NEUTROPHIL COUNT 12.9 K/uL (1.8-6.4); PLAT.SUFFICIENCY DECREASED; PLATELET COUNT 129 K/uL (156-360); RBC DIS.WIDTH-CV 15.3 % (11.8-14.6); RED BLOOD COUNT 2.79 M/uL (3.80-5.20); WHITE BLOOD COUNT 14.8 K/uL (4.1-10.2)
[2017-07-31 17:55] LABS: TRIGLYCERIDES 44 MG/DL (Normal: <150)
[2017-07-31 18:16] LABS: BASE EXCESS -14.1 mEq/L (-3 to +3); CARBOXY HGB 1.9 % (0-5); METHEMOGLOBIN 1.5 % (0-1.5); PCO2 28 mm Hg (35-45); PO2 278 mm Hg (80-100)
[2017-07-31 18:17] LABS: COMMENTS - BLOOD GASES A+C+; DEVICE VENT; FI02 60 %; MECHANICAL RATE 18 resp/min; MODE AC; PEEP 5 CM/H20; SITE RR; TIDAL VOLUME 500 ML; TOTAL RESP RATE 18 resp/min; pH 7.24 (7.35-7.45)
[2017-08-01] VITALS (32 sets, daily range): BP systolic 82–122; BP diastolic 45–69
[2017-08-01 01:12] LABS: CHLORIDE 109 mEq/L (99-109); POTASSIUM 3.8 mEq/L (3.7-5.4); SODIUM 137 mEq/L (136-147)
[2017-08-01 01:13] LABS: GLUCOSE 222 mg/dL (70-99)
[2017-08-01 01:17] LABS: CREATININE 0.9 mg/dL (0.6-1.3); GFR ESTIMATE (CALCULATED) > 59 mL/min/
[2017-08-01 01:18] LABS: HEMATOCRIT 21.2 % (36.0-46.0); HEMOGLOBIN 7.3 G/DL (11.9-15.5); MCH 29.6 PG (29.0-34.0); MCHC 34.4 G/DL (30.0-36.0); RBC DIS.WIDTH-CV 15.8 % (11.8-14.6); RBC DIS.WIDTH-SD 48.7 % (39-53); RED BLOOD COUNT 2.47 M/uL (3.80-5.20); UREA NITROGEN (BUN) 14 mg/dL (9-23); WHITE BLOOD COUNT 8.5 K/uL (4.1-10.2)
[2017-08-01 01:20] LABS: CREATINE KINASE 21 IU/L (1-294)
[2017-08-01 01:22] LABS: MCV 85.8 FL (83-99)
[2017-08-01 02:33] LABS: PLAT.SUFFICIENCY DECREASED
[2017-08-01 06:55] LABS: BASOPHIL (%) 0.1 % (0-1); EOSINOPHIL (%) 0 % (0-5); HEMATOCRIT 24.4 % (36.0-46.0); HEMOGLOBIN 8.7 G/DL (11.9-15.5); IMMATURE GRANULOCYTE (%) 0.8 % (0.0-0.7); LYMPHOCYTE (%) 6.3 % (15-42); LYMPHOCYTE COUNT 0.7 K/uL (1.0-2.8); MCH 30.4 PG (29.0-34.0); MCHC 35.7 G/DL (30.0-36.0); MCV 85.3 FL (83-99); MONOCYTE (%) 11.2 % (3-12); MONOCYTE COUNT 1.3 K/uL (0-0.8); NEUTROPHIL (%) 81.6 % (45-76); NEUTROPHIL COUNT 9.5 K/uL (1.8-6.4); PLATELET COUNT 125 K/uL (156-360); RBC DIS.WIDTH-CV 15.4 % (11.8-14.6); RBC DIS.WIDTH-SD 47.5 % (39-53); RED BLOOD COUNT 2.86 M/uL (3.80-5.20); WHITE BLOOD COUNT 11.6 K/uL (4.1-10.2)
[2017-08-01 07:11] LABS: ALBUMIN 2.6 G/DL (3.2-4.8); ALKALINE PHOSPHATASE 27 IU/L (3-129); ALT (GPT) 11 IU/L (3-49); AST (GOT) 18 IU/L (2-34); CHLORIDE 103 MEQ/L (99-109); CREATINE KINASE 15 IU/L (1-294); CREATININE 0.7 MG/DL (0.6-1.3); GFR ESTIMATE (CALCULATED) > 59 mL/min/; GLUCOSE 183 mg/dL (70-99); MAGNESIUM 1.5 mg/dl (1.3-2.7); POTASSIUM 3.6 MEQ/L (3.7-5.4); SODIUM 136 MEQ/L (136-147); UREA NITROGEN (BUN) 15 mg/dL (9-23)
[2017-08-01 07:18] LABS: PHOSPHORUS 2.1 mg/dL (2.5-4.9); TOTAL BILIRUBIN 0.5 MG/DL (0.0-1.0); TOTAL PROTEIN 4.6 G/DL (6.4-8.3)
[2017-08-01 10:50] LABS: BASOPHIL (%) 0.1 % (0-1); EOSINOPHIL (%) 0 % (0-5); HEMOGLOBIN 7.6 G/DL (11.9-15.5); IMMATURE GRANULOCYTE (%) 0.6 % (0.0-0.7); LYMPHOCYTE (%) 7.2 % (15-42); LYMPHOCYTE COUNT 0.9 K/uL (1.0-2.8); MCH 28.9 PG (29.0-34.0); MCHC 34.5 G/DL (30.0-36.0); MCV 83.7 FL (83-99); MONOCYTE (%) 14.1 % (3-12); MONOCYTE COUNT 1.8 K/uL (0-0.8); NEUTROPHIL COUNT 9.9 K/uL (1.8-6.4); PLATELET COUNT 112 K/uL (156-360); RBC DIS.WIDTH-CV 15.3 % (11.8-14.6); RBC DIS.WIDTH-SD 46.3 % (39-53); RED BLOOD COUNT 2.63 M/uL (3.80-5.20); WHITE BLOOD COUNT 12.7 K/uL (4.1-10.2)
[2017-08-01 11:20] LABS: CHLORIDE 105 MEQ/L (99-109); CREATININE 0.7 MG/DL (0.6-1.3); GFR ESTIMATE (CALCULATED) > 59 mL/min/; GLUCOSE 125 mg/dL (70-99); POTASSIUM 3.4 MEQ/L (3.7-5.4); SODIUM 138 MEQ/L (136-147); UREA NITROGEN (BUN) 14 mg/dL (9-23)
[2017-08-01 14:51] LABS: PLATELET COUNT 86 K/uL (156-360)
[2017-08-01 17:11] LABS: HEMATOCRIT 24.1 % (36.0-46.0); HEMOGLOBIN 8.7 G/DL (11.9-15.5); MCH 30.6 PG (29.0-34.0); MCHC 36.1 G/DL (30.0-36.0); MCV 84.9 FL (83-99); PLATELET COUNT 100 K/uL (156-360); RBC DIS.WIDTH-SD 46.1 % (39-53); RED BLOOD COUNT 2.84 M/uL (3.80-5.20); WHITE BLOOD COUNT 12.7 K/uL (4.1-10.2)
[2017-08-02] VITALS (24 sets, daily range): BP systolic 75–145; BP diastolic 41–79
[2017-08-02 06:25] LABS: BASOPHIL (%) 0.2 % (0-1); EOSINOPHIL (%) 0.2 % (0-5); HEMATOCRIT 23.1 % (36.0-46.0); IMMATURE GRANULOCYTE (%) 0.5 % (0.0-0.7); LYMPHOCYTE (%) 11.1 % (15-42); LYMPHOCYTE COUNT 1.2 K/uL (1.0-2.8); MCH 29.2 PG (29.0-34.0); MCHC 34.6 G/DL (30.0-36.0); MCV 84.3 FL (83-99); MONOCYTE (%) 12.1 % (3-12); MONOCYTE COUNT 1.3 K/uL (0-0.8); NEUTROPHIL (%) 75.9 % (45-76); NEUTROPHIL COUNT 8.2 K/uL (1.8-6.4); PLATELET COUNT 95 K/uL (156-360); RBC DIS.WIDTH-CV 15.1 % (11.8-14.6); RBC DIS.WIDTH-SD 45.1 % (39-53); RED BLOOD COUNT 2.74 M/uL (3.80-5.20); WHITE BLOOD COUNT 10.8 K/uL (4.1-10.2)
[2017-08-02 07:01] LABS: ALBUMIN 2.5 G/DL (3.2-4.8); ALKALINE PHOSPHATASE 29 IU/L (3-129); ALT (GPT) 7 IU/L (3-49); AST (GOT) 15 IU/L (2-34); CHLORIDE 107 MEQ/L (99-109); CREATINE KINASE 27 IU/L (1-294); CREATININE 0.5 MG/DL (0.6-1.3); GFR ESTIMATE (CALCULATED) > 59 mL/min/; GLUCOSE 102 mg/dL (70-99); MAGNESIUM 1.7 mg/dl (1.3-2.7); PHOSPHORUS 2.2 mg/dL (2.5-4.9); POTASSIUM 2.8 MEQ/L (3.7-5.4); TOTAL BILIRUBIN 0.5 MG/DL (0.0-1.0); TOTAL PROTEIN 4.6 G/DL (6.4-8.3); UREA NITROGEN (BUN) 12 mg/dL (9-23)
[2017-08-02 07:08] LABS: SODIUM 145 MEQ/L (136-147)
[2017-08-02 13:07] LABS: INTER. NORMALIZED RATIO 1.3
[2017-08-02 13:09] LABS: PTT 30.4 SEC (25-37)
[2017-08-02 13:20] LABS: THYROTROPIN (TSH) 3.4 MIU/L (0.4-5.5)
[2017-08-02 14:16] LABS: FIBRINOGEN 163 mg/dL (150-450)
[2017-08-03] VITALS (24 sets, daily range): BP systolic 82–126; BP diastolic 48–69
[2017-08-03 05:00] LABS: BASOPHIL (%) 0.3 % (0-1); EOSINOPHIL (%) 4.8 % (0-5); EOSINOPHIL COUNT 0.6 K/uL (0-0.3); HEMATOCRIT 26.8 % (36.0-46.0); HEMOGLOBIN 9.1 G/DL (11.9-15.5); IMMATURE GRANULOCYTE (%) 0.4 % (0.0-0.7); LYMPHOCYTE (%) 10.7 % (15-42); LYMPHOCYTE COUNT 1.3 K/uL (1.0-2.8); MCH 29.9 PG (29.0-34.0); MCV 88.2 FL (83-99); MONOCYTE COUNT 1.3 K/uL (0-0.8); NEUTROPHIL (%) 72.8 % (45-76); NEUTROPHIL COUNT 8.7 K/uL (1.8-6.4); PLATELET COUNT 123 K/uL (156-360); RBC DIS.WIDTH-SD 49.7 % (39-53); RED BLOOD COUNT 3.04 M/uL (3.80-5.20)
[2017-08-03 05:13] LABS: ALBUMIN 2.8 g/dL (3.2-4.8); CHLORIDE 106 mEq/L (99-109); POTASSIUM 3.2 mEq/L (3.7-5.4); SODIUM 145 mEq/L (136-147)
[2017-08-03 05:14] LABS: MAGNESIUM 1.8 mg/dL (1.3-2.7)
[2017-08-03 05:15] LABS: GLUCOSE 85 mg/dL (70-99); TOTAL PROTEIN 4.7 g/dL (6.4-8.3)
[2017-08-03 05:17] LABS: TOTAL BILIRUBIN 0.9 mg/dL (0.0-1.0)
[2017-08-03 05:19] LABS: ALKALINE PHOSPHATASE 48 IU/L (3-129); CREATININE 0.7 mg/dL (0.6-1.3); GFR ESTIMATE (CALCULATED) > 59 mL/min/; PHOSPHORUS 5.3 mg/dL (2.5-4.9)
[2017-08-03 05:20] LABS: UREA NITROGEN (BUN) 7 mg/dL (9-23)
[2017-08-03 05:21] LABS: AST (GOT) 16 IU/L (2-34)
[2017-08-03 05:22] LABS: ALT (GPT) 8 IU/L (3-49); CREATINE KINASE 22 IU/L (1-294)
[2017-08-04] VITALS (28 sets, daily range): BP systolic 43–125; BP diastolic 38–95
[2017-08-04 06:02] LABS: BASOPHIL (%) 0.2 % (0-1); EOSINOPHIL (%) 7.3 % (0-5); EOSINOPHIL COUNT 1.1 K/uL (0-0.3); HEMATOCRIT 26.2 % (36.0-46.0); HEMOGLOBIN 8.6 G/DL (11.9-15.5); IMMATURE GRANULOCYTE (%) 0.6 % (0.0-0.7); LYMPHOCYTE (%) 9.5 % (15-42); LYMPHOCYTE COUNT 1.4 K/uL (1.0-2.8); MCH 29.7 PG (29.0-34.0); MCHC 32.8 G/DL (30.0-36.0); MCV 90.3 FL (83-99); MONOCYTE (%) 11.9 % (3-12); MONOCYTE COUNT 1.7 K/uL (0-0.8); NEUTROPHIL (%) 70.5 % (45-76); NEUTROPHIL COUNT 10.2 K/uL (1.8-6.4); PLATELET COUNT 151 K/uL (156-360); RBC DIS.WIDTH-CV 16.7 % (11.8-14.6); RBC DIS.WIDTH-SD 53.6 % (39-53); WHITE BLOOD COUNT 14.4 K/uL (4.1-10.2)
[2017-08-04 06:20] LABS: ALBUMIN 2.1 G/DL (3.2-4.8); ALKALINE PHOSPHATASE 44 IU/L (3-129); ALT (GPT) 6 IU/L (3-49); AST (GOT) 15 IU/L (2-34); CHLORIDE 110 MEQ/L (99-109); CREATINE KINASE 42 IU/L (1-294); CREATININE 0.6 MG/DL (0.6-1.3); GFR ESTIMATE (CALCULATED) > 59 mL/min/; GLUCOSE 67 mg/dL (70-99); MAGNESIUM 1.7 mg/dl (1.3-2.7); SODIUM 143 MEQ/L (136-147); TOTAL PROTEIN 4.4 G/DL (6.4-8.3); UREA NITROGEN (BUN) 8 mg/dL (9-23)
[2017-08-04 06:28] LABS: PHOSPHORUS 3.6 mg/dL (2.5-4.9); TOTAL BILIRUBIN 1.1 MG/DL (0.0-1.0)
[2017-08-04 13:43] LABS: Heparin Induced Plt Ab Negative (Negative)
[2017-08-04 18:00] LABS: UFH SRA Result Negative (Negative)
[2017-08-05] VITALS (28 sets, daily range): BP systolic 65–126; BP diastolic 36–87
[2017-08-05 04:42] LABS: BASOPHIL (%) 0.2 % (0-1); EOSINOPHIL COUNT 0.9 K/uL (0-0.3); HEMOGLOBIN 8.6 G/DL (11.9-15.5); IMMATURE GRANULOCYTE (%) 0.8 % (0.0-0.7); LYMPHOCYTE (%) 4.4 % (15-42); MCH 30.6 PG (29.0-34.0); MCHC 34.4 G/DL (30.0-36.0); MONOCYTE (%) 10.3 % (3-12); MONOCYTE COUNT 2.3 K/uL (0-0.8); NEUTROPHIL (%) 80.3 % (45-76); NEUTROPHIL COUNT 17.9 K/uL (1.8-6.4); PLATELET COUNT 151 K/uL (156-360); RBC DIS.WIDTH-CV 15.9 % (11.8-14.6); RBC DIS.WIDTH-SD 51.1 % (39-53); RED BLOOD COUNT 2.81 M/uL (3.80-5.20); WHITE BLOOD COUNT 22.3 K/uL (4.1-10.2)
[2017-08-05 04:57] LABS: CHLORIDE 114 mEq/L (99-109); POTASSIUM 3.6 mEq/L (3.7-5.4); SODIUM 143 mEq/L (136-147)
[2017-08-05 04:58] LABS: ALBUMIN 2.5 g/dL (3.2-4.8)
[2017-08-05 05:00] LABS: GLUCOSE 69 mg/dL (70-99); TOTAL PROTEIN 4.1 g/dL (6.4-8.3)
[2017-08-05 05:03] LABS: PHOSPHORUS 3.6 mg/dL (2.5-4.9)
[2017-08-05 05:04] LABS: ALKALINE PHOSPHATASE 48 IU/L (3-129); CREATININE 0.8 mg/dL (0.6-1.3); GFR ESTIMATE (CALCULATED) > 59 mL/min/
[2017-08-05 05:05] LABS: AST (GOT) 17 IU/L (2-34); UREA NITROGEN (BUN) 9 mg/dL (9-23)
[2017-08-05 05:07] LABS: ALT (GPT) 8 IU/L (3-49); CREATINE KINASE 71 IU/L (1-294)
[2017-08-05 05:13] LABS: MAGNESIUM 1.2 mg/dL (1.3-2.7); TOTAL BILIRUBIN 1.7 mg/dL (0.0-1.0)
[2017-08-05 19:01] LABS: INTER. NORMALIZED RATIO 1.3
[2017-08-05 19:04] LABS: PTT 32.7 SEC (25-37)
[2017-08-06] VITALS (24 sets, daily range): BP systolic 84–121; BP diastolic 48–70
[2017-08-06 02:00] LABS: BASOPHIL (%) 0.2 % (0-1); EOSINOPHIL (%) 6.1 % (0-5); EOSINOPHIL COUNT 1.1 K/uL (0-0.3); HEMATOCRIT 21.7 % (36.0-46.0); HEMOGLOBIN 7.4 G/DL (11.9-15.5); IMMATURE GRANULOCYTE (%) 0.9 % (0.0-0.7); LYMPHOCYTE (%) 9.9 % (15-42); LYMPHOCYTE COUNT 1.7 K/uL (1.0-2.8); MCH 30.6 PG (29.0-34.0); MCHC 34.1 G/DL (30.0-36.0); MCV 89.7 FL (83-99); MONOCYTE (%) 13.4 % (3-12); MONOCYTE COUNT 2.4 K/uL (0-0.8); NEUTROPHIL (%) 69.5 % (45-76); NEUTROPHIL COUNT 12.2 K/uL (1.8-6.4); PLATELET COUNT 162 K/uL (156-360); RBC DIS.WIDTH-CV 16.8 % (11.8-14.6); RBC DIS.WIDTH-SD 54.4 % (39-53); RED BLOOD COUNT 2.42 M/uL (3.80-5.20); WHITE BLOOD COUNT 17.6 K/uL (4.1-10.2)
[2017-08-06 02:44] LABS: CHLORIDE 114 mEq/L (99-109); POTASSIUM 3.5 mEq/L (3.7-5.4); SODIUM 144 mEq/L (136-147)
[2017-08-06 02:45] LABS: ALBUMIN 2.2 g/dL (3.2-4.8)
[2017-08-06 02:47] LABS: GLUCOSE 175 mg/dL (70-99); MAGNESIUM 1.9 mg/dL (1.3-2.7); TOTAL PROTEIN 3.9 g/dL (6.4-8.3)
[2017-08-06 02:51] LABS: CREATININE 0.9 mg/dL (0.6-1.3); GFR ESTIMATE (CALCULATED) > 59 mL/min/
[2017-08-06 02:52] LABS: AST (GOT) 16 IU/L (2-34)
[2017-08-06 02:54] LABS: ALKALINE PHOSPHATASE 54 IU/L (3-129)
[2017-08-06 02:55] LABS: TOTAL BILIRUBIN 0.6 mg/dL (0.0-1.0); UREA NITROGEN (BUN) 10 mg/dL (9-23)
[2017-08-06 02:57] LABS: ALT (GPT) 5 IU/L (3-49); CREATINE KINASE 23 IU/L (1-294)
[2017-08-06 10:05] LABS: BASE EXCESS 0.1 mEq/L (-3 to +3); BICARBONATE 24.6 mEq/L (22-26); CARBOXY HGB 1.8 % (0-5); COMMENTS - BLOOD GASES C+; DEVICE VET; FI02 30 %; METHEMOGLOBIN 1.7 % (0-1.5); PCO2 38 mm Hg (35-45); PO2 86 mm Hg (80-100); SITE RR; pH 7.42 (7.35-7.45)
[2017-08-06 10:06] LABS: MODE AC
[2017-08-06 10:07] LABS: MECHANICAL RATE 12 resp/min; PEEP 5 CM/H20; TIDAL VOLUME 500 ML; TOTAL RESP RATE 12 resp/min
[2017-08-06 10:30] LABS: TROP-I INTERPRETATION NEGATIVE; TROPONIN-I 0.01 ng/mL (0.0-0.30)
[2017-08-06 11:06] LABS: HIGH-SENS C-REACTIVE PROTEIN > 8.00 MG/DL (0.02-0.20)
[2017-08-06 12:17] LABS: CREATINE KINASE 22 IU/L (1-294)
[2017-08-07] VITALS (32 sets, daily range): BP systolic 82–119; BP diastolic 44–76
[2017-08-07 06:18] LABS: BASOPHIL (%) 0 % (0-1); EOSINOPHIL (%) 0 % (0-5); HEMATOCRIT 16.2 % (36.0-46.0); IMMATURE GRANULOCYTE (%) 3.1 % (0.0-0.7); LYMPHOCYTE (%) 13.2 % (15-42); LYMPHOCYTE COUNT 0.5 K/uL (1.0-2.8); MCH 30.8 PG (29.0-34.0); MCHC 34.6 G/DL (30.0-36.0); MONOCYTE COUNT 0.6 K/uL (0-0.8); NEUTROPHIL (%) 68.7 % (45-76); NEUTROPHIL COUNT 2.7 K/uL (1.8-6.4); RBC DIS.WIDTH-CV 16.7 % (11.8-14.6); RBC DIS.WIDTH-SD 52.9 % (39-53); WHITE BLOOD COUNT 3.9 K/uL (4.1-10.2)
[2017-08-07 06:19] LABS: HEMOGLOBIN 5.6 G/DL (11.9-15.5); RED BLOOD COUNT 1.82 M/uL (3.80-5.20)
[2017-08-07 07:12] LABS: ALBUMIN 2.9 G/DL (3.2-4.8); ALKALINE PHOSPHATASE 36 IU/L (3-129); ALT (GPT) 5 IU/L (3-49); AST (GOT) 11 IU/L (2-34); CHLORIDE 108 MEQ/L (99-109); CREATINE KINASE 13 IU/L (1-294); CREATININE 0.8 MG/DL (0.6-1.3); GFR ESTIMATE (CALCULATED) > 59 mL/min/; GLUCOSE 132 mg/dL (70-99); MAGNESIUM 1.9 mg/dl (1.3-2.7); SODIUM 145 MEQ/L (136-147); TOTAL PROTEIN 4.9 G/DL (6.4-8.3); UREA NITROGEN (BUN) 9 mg/dL (9-23)
[2017-08-07 07:16] LABS: TOTAL BILIRUBIN 0.8 MG/DL (0.0-1.0)
[2017-08-07 08:36] LABS: HEMATOLOGY COMMENT 1 SMEAR COMPATIBLE; PLAT.SUFFICIENCY DECREASED
[2017-08-07 08:39] LABS: PLATELET COUNT 103 K/uL (156-360)
[2017-08-07 09:58] LABS: BASE EXCESS 6.2 mEq/L (-3 to +3); CARBOXY HGB 2.2 % (0-5); METHEMOGLOBIN 1.3 % (0-1.5); pH 7.46 (7.35-7.45)
[2017-08-07 10:00] LABS: BICARBONATE 30.6 mEq/L (22-26); COMMENTS - BLOOD GASES A+C+; CONTINUOUS POS AIRWAY PRESSURE 5 cm H2O; DEVICE 840 PB; FI02 30 %; MODE SPONT; O2 FLOW 50 L/MIN; PCO2 43 mm Hg (35-45); PO2 40 mm Hg (80-100); PRES. SUPPORT 12 CM/H2O; SITE LR; TOTAL RESP RATE 21 resp/min
[2017-08-07 15:38] LABS: HEMATOCRIT 23.3 % (36.0-46.0); MCH 29.9 PG (29.0-34.0); MCHC 34.3 G/DL (30.0-36.0); MCV 86.9 FL (83-99); PLATELET COUNT 114 K/uL (156-360); RBC DIS.WIDTH-CV 15.9 % (11.8-14.6); WHITE BLOOD COUNT 3.3 K/uL (4.1-10.2)
[2017-08-07 15:39] LABS: RED BLOOD COUNT 2.68 M/uL (3.80-5.20)
[2017-08-08] VITALS (20 sets, daily range): BP systolic 87–127; BP diastolic 43–88
[2017-08-08 06:19] LABS: BASOPHIL (%) 0 % (0-1); EOSINOPHIL (%) 0 % (0-5); HEMOGLOBIN 8.3 G/DL (11.9-15.5); IMMATURE GRANULOCYTE (%) 4.8 % (0.0-0.7); LYMPHOCYTE (%) 17.3 % (15-42); LYMPHOCYTE COUNT 0.5 K/uL (1.0-2.8); MCH 29.4 PG (29.0-34.0); MCHC 34.6 G/DL (30.0-36.0); MCV 85.1 FL (83-99); MONOCYTE (%) 13.3 % (3-12); MONOCYTE COUNT 0.4 K/uL (0-0.8); NEUTROPHIL (%) 64.6 % (45-76); NEUTROPHIL COUNT 1.8 K/uL (1.8-6.4); PLATELET COUNT 107 K/uL (156-360); RBC DIS.WIDTH-CV 15.9 % (11.8-14.6); RBC DIS.WIDTH-SD 48.6 % (39-53); RED BLOOD COUNT 2.82 M/uL (3.80-5.20); WHITE BLOOD COUNT 2.7 K/uL (4.1-10.2)
[2017-08-08 08:16] LABS: ALBUMIN 2.9 G/DL (3.2-4.8); ALKALINE PHOSPHATASE 34 IU/L (3-129); ALT (GPT) 6 IU/L (3-49); AST (GOT) 15 IU/L (2-34); CHLORIDE 103 MEQ/L (99-109); CREATININE 0.7 MG/DL (0.6-1.3); GFR ESTIMATE (CALCULATED) > 59 mL/min/; GLUCOSE 158 mg/dL (70-99); MAGNESIUM 1.7 mg/dl (1.3-2.7); POTASSIUM 2.5 MEQ/L (3.7-5.4); SODIUM 144 MEQ/L (136-147); TOTAL BILIRUBIN 0.8 MG/DL (0.0-1.0); UREA NITROGEN (BUN) 12 mg/dL (9-23)
[2017-08-08 08:24] LABS: CREATINE KINASE < 10 IU/L (1-294)
[2017-08-09] VITALS (21 sets, daily range): BP systolic 104–123; BP diastolic 58–80
[2017-08-09 06:29] LABS: HEMATOCRIT 25.3 % (36.0-46.0); HEMOGLOBIN 8.9 G/DL (11.9-15.5); MCH 30.7 PG (29.0-34.0); MCHC 35.2 G/DL (30.0-36.0); MCV 87.2 FL (83-99); PLATELET COUNT 122 K/uL (156-360); RBC DIS.WIDTH-SD 49.5 % (39-53); WHITE BLOOD COUNT 3.3 K/uL (4.1-10.2)
[2017-08-09 06:36] LABS: ALBUMIN 2.7 G/DL (3.2-4.8); ALKALINE PHOSPHATASE 38 IU/L (3-129); ALT (GPT) 10 IU/L (3-49); CHLORIDE 103 MEQ/L (99-109); CREATININE 0.6 MG/DL (0.6-1.3); GFR ESTIMATE (CALCULATED) > 59 mL/min/; GLUCOSE 176 mg/dL (70-99); MAGNESIUM 1.9 mg/dl (1.3-2.7); SODIUM 145 MEQ/L (136-147); TOTAL BILIRUBIN 0.8 MG/DL (0.0-1.0); TOTAL PROTEIN 4.9 G/DL (6.4-8.3); UREA NITROGEN (BUN) 15 mg/dL (9-23)
[2017-08-09 06:42] LABS: AST (GOT) 26 IU/L (2-34)
[2017-08-09 08:51] LABS: ABS NEUTROPHIL COUNT 2.5; ANISOCYTOSIS 1+; EOSINOPHIL ABS CT 0; PLAT.SUFFICIENCY DECREASED; POLYCHROMASIA 1+
[2017-08-10] VITALS (23 sets, daily range): BP systolic 90–129; BP diastolic 50–70
[2017-08-10 05:50] LABS: BASOPHIL (%) 0 % (0-1); EOSINOPHIL (%) 0 % (0-5); HEMATOCRIT 24.5 % (36.0-46.0); HEMOGLOBIN 8.4 G/DL (11.9-15.5); IMMATURE GRANULOCYTE (%) 1.5 % (0.0-0.7); LYMPHOCYTE (%) 14.2 % (15-42); LYMPHOCYTE COUNT 0.6 K/uL (1.0-2.8); MCH 29.8 PG (29.0-34.0); MCHC 34.3 G/DL (30.0-36.0); MCV 86.9 FL (83-99); MONOCYTE (%) 8.2 % (3-12); MONOCYTE COUNT 0.3 K/uL (0-0.8); NEUTROPHIL (%) 76.1 % (45-76); PLATELET COUNT 133 K/uL (156-360); RBC DIS.WIDTH-CV 16.1 % (11.8-14.6); RBC DIS.WIDTH-SD 48.7 % (39-53); RED BLOOD COUNT 2.82 M/uL (3.80-5.20); WHITE BLOOD COUNT 3.9 K/uL (4.1-10.2)
[2017-08-10 05:54] LABS: INTER. NORMALIZED RATIO 1.4
[2017-08-10 05:57] LABS: PTT 104.1 SEC (25-37)
[2017-08-10 06:32] LABS: ALBUMIN 2.8 G/DL (3.2-4.8); ALKALINE PHOSPHATASE 40 IU/L (3-129); ALT (GPT) 15 IU/L (3-49); AST (GOT) 31 IU/L (2-34); CHLORIDE 98 MEQ/L (99-109); CREATININE 0.6 MG/DL (0.6-1.3); GFR ESTIMATE (CALCULATED) > 59 mL/min/; GLUCOSE 160 mg/dL (70-99); SODIUM 147 MEQ/L (136-147); TOTAL PROTEIN 5.2 G/DL (6.4-8.3); UREA NITROGEN (BUN) 15 mg/dL (9-23)
[2017-08-10 06:33] LABS: POTASSIUM 2.3 MEQ/L (3.7-5.4)
[2017-08-10 07:30] LABS: PHOSPHORUS 2.3 mg/dL (2.5-4.9)
[2017-08-10 07:31] LABS: MAGNESIUM 1.6 mg/dl (1.3-2.7)
[2017-08-10 07:58] LABS: HIGH-SENS C-REACTIVE PROTEIN 3.05 MG/DL (0.02-0.20)
[2017-08-10 13:00] LABS: INTER. NORMALIZED RATIO 1.3
[2017-08-10 13:03] LABS: PTT 93.7 SEC (25-37)
[2017-08-11] VITALS (10 sets, daily range): BP systolic 120–139; BP diastolic 65–75
[2017-08-11 05:57] LABS: BASOPHIL (%) 0.1 % (0-1); EOSINOPHIL (%) 0 % (0-5); HEMATOCRIT 25.5 % (36.0-46.0); HEMOGLOBIN 8.5 G/DL (11.9-15.5); IMMATURE GRANULOCYTE (%) 2.9 % (0.0-0.7); LYMPHOCYTE (%) 11.1 % (15-42); LYMPHOCYTE COUNT 0.8 K/uL (1.0-2.8); MCH 29.7 PG (29.0-34.0); MCHC 33.3 G/DL (30.0-36.0); MCV 89.2 FL (83-99); MONOCYTE (%) 7.4 % (3-12); MONOCYTE COUNT 0.5 K/uL (0-0.8); NEUTROPHIL (%) 78.5 % (45-76); NEUTROPHIL COUNT 5.6 K/uL (1.8-6.4); PLATELET COUNT 154 K/uL (156-360); RBC DIS.WIDTH-CV 16.9 % (11.8-14.6); RBC DIS.WIDTH-SD 50.5 % (39-53); RED BLOOD COUNT 2.86 M/uL (3.80-5.20); WHITE BLOOD COUNT 7.1 K/uL (4.1-10.2)
[2017-08-11 06:21] LABS: ALBUMIN 2.8 G/DL (3.2-4.8); ALKALINE PHOSPHATASE 47 IU/L (3-129); ALT (GPT) 28 IU/L (3-49); CHLORIDE 99 MEQ/L (99-109); CREATININE 0.6 MG/DL (0.6-1.3); GFR ESTIMATE (CALCULATED) > 59 mL/min/; PHOSPHORUS 2.6 mg/dL (2.5-4.9); POTASSIUM 2.5 MEQ/L (3.7-5.4); SODIUM 147 MEQ/L (136-147); TOTAL PROTEIN 5.2 G/DL (6.4-8.3); UREA NITROGEN (BUN) 17 mg/dL (9-23)
[2017-08-11 06:23] LABS: AST (GOT) 54 IU/L (2-34); GLUCOSE 107 mg/dL (70-99); MAGNESIUM 2.3 mg/dl (1.3-2.7); TOTAL BILIRUBIN 1.3 MG/DL (0.0-1.0)
[2017-08-11 18:29] LABS: ALBUMIN 2.8 G/DL (3.2-4.8); ALKALINE PHOSPHATASE 59 IU/L (3-129); ALT (GPT) 46 IU/L (3-49); CHLORIDE 100 MEQ/L (99-109); CREATININE 0.5 MG/DL (0.6-1.3); GFR ESTIMATE (CALCULATED) > 59 mL/min/; GLUCOSE 123 mg/dL (70-99); POTASSIUM 2.8 MEQ/L (3.7-5.4); SODIUM 143 MEQ/L (136-147); TOTAL BILIRUBIN 1.3 MG/DL (0.0-1.0); TOTAL PROTEIN 5.5 G/DL (6.4-8.3); UREA NITROGEN (BUN) 19 mg/dL (9-23)
[2017-08-11 18:33] LABS: AST (GOT) 87 IU/L (2-34)
[2017-08-12 00:02] VITALS: BP 130/59
[2017-08-12 04:03] VITALS: BP 140/67
[2017-08-12 06:01] LABS: BASOPHIL (%) 0.2 % (0-1); EOSINOPHIL (%) 0 % (0-5); IMMATURE GRANULOCYTE (%) 2.3 % (0.0-0.7); LYMPHOCYTE (%) 5.6 % (15-42); LYMPHOCYTE COUNT 0.5 K/uL (1.0-2.8); MCHC 33.3 G/DL (30.0-36.0); MONOCYTE (%) 5.7 % (3-12); MONOCYTE COUNT 0.6 K/uL (0-0.8); NEUTROPHIL (%) 86.2 % (45-76); NEUTROPHIL COUNT 8.3 K/uL (1.8-6.4); PLATELET COUNT 157 K/uL (156-360); RBC DIS.WIDTH-CV 17.7 % (11.8-14.6); RBC DIS.WIDTH-SD 52.5 % (39-53); WHITE BLOOD COUNT 9.6 K/uL (4.1-10.2)
[2017-08-12 06:27] LABS: ALBUMIN 2.6 G/DL (3.2-4.8); ALKALINE PHOSPHATASE 66 IU/L (3-129); ALT (GPT) 41 IU/L (3-49); AST (GOT) 66 IU/L (2-34); CHLORIDE 100 MEQ/L (99-109); CREATININE 0.6 MG/DL (0.6-1.3); GFR ESTIMATE (CALCULATED) > 59 mL/min/; GLUCOSE 116 mg/dL (70-99); PHOSPHORUS 1.8 mg/dL (2.5-4.9); POTASSIUM 2.8 MEQ/L (3.7-5.4); SODIUM 145 MEQ/L (136-147); TOTAL BILIRUBIN 1.2 MG/DL (0.0-1.0); TOTAL PROTEIN 5.4 G/DL (6.4-8.3); UREA NITROGEN (BUN) 22 mg/dL (9-23)
[2017-08-12 06:28] LABS: MAGNESIUM 1.9 mg/dl (1.3-2.7)
[2017-08-12 06:30] LABS: INTER. NORMALIZED RATIO 1.4
[2017-08-12 07:45] VITALS: BP 143/88
[2017-08-12 12:00] VITALS: BP 130/84
[2017-08-12 16:00] VITALS: BP 126/81
[2017-08-12 20:00] VITALS: BP 126/85
[2017-08-13] VITALS: BP 131/73
[2017-08-13 04:00] VITALS: BP 126/74
[2017-08-13 05:03] LABS: BASOPHIL (%) 0.1 % (0-1); EOSINOPHIL (%) 0 % (0-5); HEMATOCRIT 25.9 % (36.0-46.0); HEMOGLOBIN 8.8 G/DL (11.9-15.5); IMMATURE GRANULOCYTE (%) 1.6 % (0.0-0.7); LYMPHOCYTE (%) 4.5 % (15-42); LYMPHOCYTE COUNT 0.5 K/uL (1.0-2.8); MCH 30.7 PG (29.0-34.0); MCV 90.2 FL (83-99); MONOCYTE (%) 7.1 % (3-12); MONOCYTE COUNT 0.7 K/uL (0-0.8); NEUTROPHIL (%) 86.7 % (45-76); NEUTROPHIL COUNT 8.9 K/uL (1.8-6.4); PLATELET COUNT 128 K/uL (156-360); RBC DIS.WIDTH-CV 18.1 % (11.8-14.6); RED BLOOD COUNT 2.87 M/uL (3.80-5.20); WHITE BLOOD COUNT 10.3 K/uL (4.1-10.2)
[2017-08-13 05:30] LABS: CHLORIDE 104 mEq/L (99-109); POTASSIUM 3.1 mEq/L (3.7-5.4); SODIUM 144 mEq/L (136-147)
[2017-08-13 05:31] LABS: ALBUMIN 3.4 g/dL (3.2-4.8); MAGNESIUM 1.7 mg/dL (1.3-2.7)
[2017-08-13 05:33] LABS: GLUCOSE 122 mg/dL (70-99); TOTAL PROTEIN 5.6 g/dL (6.4-8.3)
[2017-08-13 05:35] LABS: TOTAL BILIRUBIN 1.8 mg/dL (0.0-1.0)
[2017-08-13 05:36] LABS: ALKALINE PHOSPHATASE 54 IU/L (3-129); PHOSPHORUS 2.3 mg/dL (2.5-4.9)
[2017-08-13 05:37] LABS: CREATININE 0.7 mg/dL (0.6-1.3); GFR ESTIMATE (CALCULATED) > 59 mL/min/
[2017-08-13 05:38] LABS: AST (GOT) 32 IU/L (2-34); UREA NITROGEN (BUN) 19 mg/dL (9-23)
[2017-08-13 05:40] LABS: ALT (GPT) 31 IU/L (3-49)
[2017-08-13 08:02] VITALS: BP 130/65
[2017-08-13 14:25] VITALS: BP 131/77
[2017-08-13 15:39] LABS: APPEARANCE SL.HAZY ((CLEAR)); BILIRUBIN NEGATIVE; BLOOD NEGATIVE; COLOR YELLOW ((YELLOW)); GLUCOSE (STRIP) NEGATIVE; KETONES NEGATIVE; LEUKOCYTES SMALL; NITRITE NEGATIVE; PROTEIN (STRIP) 30; SPECIFIC GRAVITY 1.021 (1.000-1.030); UROBILINOGEN 0.2 MG/DL (0.2-1.0)
[2017-08-13 16:03] VITALS: BP 132/62
[2017-08-13 16:18] LABS: BACTERIA 2+ /HPF; EPITHELIAL CELLS 1+ /HPF; MUCUS RARE /LPF; RED BLOOD CELLS 0-5 /HPF (0-5)
[2017-08-13 20:00] VITALS: BP 125/78
[2017-08-14] VITALS (7 sets, daily range): BP systolic 126–148; BP diastolic 58–89
[2017-08-14 06:01] LABS: BASOPHIL (%) 0 % (0-1); EOSINOPHIL (%) 0 % (0-5); HEMATOCRIT 24.3 % (36.0-46.0); HEMOGLOBIN 8.1 G/DL (11.9-15.5); LYMPHOCYTE (%) 8.3 % (15-42); LYMPHOCYTE COUNT 0.4 K/uL (1.0-2.8); MCH 30.2 PG (29.0-34.0); MCHC 33.3 G/DL (30.0-36.0); MCV 90.7 FL (83-99); MONOCYTE (%) 9.3 % (3-12); MONOCYTE COUNT 0.5 K/uL (0-0.8); NEUTROPHIL (%) 80.4 % (45-76); NEUTROPHIL COUNT 4.1 K/uL (1.8-6.4); PLATELET COUNT 132 K/uL (156-360); RBC DIS.WIDTH-SD 54.8 % (39-53); RED BLOOD COUNT 2.68 M/uL (3.80-5.20)
[2017-08-14 06:33] LABS: ALBUMIN 3.7 G/DL (3.2-4.8); ALKALINE PHOSPHATASE 39 IU/L (3-129); ALT (GPT) 20 IU/L (3-49); CHLORIDE 103 MEQ/L (99-109); CREATININE 0.6 MG/DL (0.6-1.3); GFR ESTIMATE (CALCULATED) > 59 mL/min/; GLUCOSE 118 mg/dL (70-99); MAGNESIUM 1.7 mg/dl (1.3-2.7); PHOSPHORUS 2.1 mg/dL (2.5-4.9); POTASSIUM 2.7 MEQ/L (3.7-5.4); SODIUM 145 MEQ/L (136-147); TOTAL PROTEIN 5.7 G/DL (6.4-8.3); UREA NITROGEN (BUN) 18 mg/dL (9-23)
[2017-08-14 06:34] LABS: AST (GOT) 21 IU/L (2-34); TOTAL BILIRUBIN 1.6 MG/DL (0.0-1.0)
[2017-08-15 04:00] VITALS: BP 156/75
[2017-08-15 06:52] LABS: BASOPHIL (%) 0.2 % (0-1); EOSINOPHIL (%) 0.2 % (0-5); HEMOGLOBIN 8.3 G/DL (11.9-15.5); IMMATURE GRANULOCYTE (%) 2.2 % (0.0-0.7); LYMPHOCYTE (%) 9.9 % (15-42); LYMPHOCYTE COUNT 0.5 K/uL (1.0-2.8); MCH 31.2 PG (29.0-34.0); MCHC 34.6 G/DL (30.0-36.0); MCV 90.2 FL (83-99); MONOCYTE (%) 10.1 % (3-12); MONOCYTE COUNT 0.5 K/uL (0-0.8); NEUTROPHIL (%) 77.4 % (45-76); NEUTROPHIL COUNT 3.6 K/uL (1.8-6.4); PLATELET COUNT 108 K/uL (156-360); RBC DIS.WIDTH-CV 19.5 % (11.8-14.6); RBC DIS.WIDTH-SD 59.5 % (39-53); RED BLOOD COUNT 2.66 M/uL (3.80-5.20); WHITE BLOOD COUNT 4.6 K/uL (4.1-10.2)
[2017-08-15 06:54] LABS: ALBUMIN 3.3 G/DL (3.2-4.8); ALKALINE PHOSPHATASE 40 IU/L (3-129); ALT (GPT) 21 IU/L (3-49); AST (GOT) 28 IU/L (2-34); CHLORIDE 105 MEQ/L (99-109); CREATININE 0.5 MG/DL (0.6-1.3); GFR ESTIMATE (CALCULATED) > 59 mL/min/; GLUCOSE 107 mg/dL (70-99); MAGNESIUM 1.7 mg/dl (1.3-2.7); POTASSIUM 2.9 MEQ/L (3.7-5.4); SODIUM 146 MEQ/L (136-147); TOTAL BILIRUBIN 1.3 MG/DL (0.0-1.0); TOTAL PROTEIN 5.6 G/DL (6.4-8.3); UREA NITROGEN (BUN) 18 mg/dL (9-23)
[2017-08-15 07:09] LABS: PHOSPHORUS 2.9 mg/dL (2.5-4.9)
[2017-08-15 07:27] VITALS: BP 145/66
[2017-08-15 11:19] VITALS: BP 121/74
[2017-08-15 16:50] VITALS: BP 159/81
[2017-08-15 20:00] VITALS: BP 132/70
[2017-08-15 23:55] VITALS: BP 139/64
[2017-08-16 04:00] VITALS: BP 140/72
[2017-08-16 05:53] LABS: CHLORIDE 102 MEQ/L (99-109); CREATININE 0.6 MG/DL (0.6-1.3); GFR ESTIMATE (CALCULATED) > 59 mL/min/; GLUCOSE 120 mg/dL (70-99); POTASSIUM 3.3 MEQ/L (3.7-5.4); SODIUM 146 MEQ/L (136-147); UREA NITROGEN (BUN) 20 mg/dL (9-23)
[2017-08-16 12:08] VITALS: BP 137/68
[2017-08-16 15:20] VITALS: BP 133/64
[2017-08-16 21:57] VITALS: BP 135/67
[2017-08-17 00:10] VITALS: BP 132/68
[2017-08-17 02:48] VITALS: BP 128/65
[2017-08-17 04:55] LABS: HEMATOCRIT 25.8 % (36.0-46.0); HEMOGLOBIN 8.8 G/DL (11.9-15.5); MCH 31.3 PG (29.0-34.0); MCHC 34.1 G/DL (30.0-36.0); MCV 91.8 FL (83-99); RBC DIS.WIDTH-CV 19.7 % (11.8-14.6); RBC DIS.WIDTH-SD 65.3 % (39-53); RED BLOOD COUNT 2.81 M/uL (3.80-5.20); WHITE BLOOD COUNT 6.7 K/uL (4.1-10.2)
[2017-08-17 05:02] LABS: PLATELET COUNT 151 K/uL (156-360)
[2017-08-17 07:05] VITALS: BP 136/71
[2017-08-17] MEDS ORDERED: OXYCODONE HCL5 MG PO (10:44)
[2017-08-17] MEDS ORDERED: ALPRAZOLAM0.5 MG PO (10:44)
[2017-08-17] MEDS ORDERED: POTASSIUM20 MEQ/11 PO (10:44)
[2017-08-17 11:17] VITALS: BP 130/62
== END 2017-08-17 14:40 | DRG 907 ==
LOC: 2SOUTH 11:28 → ENRESERV 07-30 21:53 → 2SOUTH 07-31 05:33 → 4WEST 07-31 05:33 → 2SOUTH 07-31 09:33 → ENRESERV 07-31 13:34 → 4WEST 07-31 14:48 → CANRESERV 08-11 08:36 → ENRESERV 08-11 08:36 → 4WEST 08-11 13:28 → ENRESERV 08-13 12:08 → 4WEST 08-13 18:41 → 4EAST 08-13 18:41 → ENRESERV 08-13 18:45 → 4EAST 08-14 04:49
PROVIDERS: Internal Medicine; Internal Medicine Critical Care Medicine; Surgery
PROC: 0DQP0ZZ Repair Rectum, Open Approach (ICD-10-PCS; principal; 2017-07-31)
PROC: 30233K1 Transfusion of Nonautologous Frozen Plasma into Peripheral Vein, Percutaneous Approach (ICD-10-PCS; principal; 2017-07-31)
PROC: 0DBW0ZZ Excision of Peritoneum, Open Approach (ICD-10-PCS; principal; 2017-07-31)
PROC: 0UQG0ZZ Repair Vagina, Open Approach (ICD-10-PCS; principal; 2017-07-31)
PROC: 30233N1 Transfusion of Nonautologous Red Blood Cells into Peripheral Vein, Percutaneous Approach (ICD-10-PCS; principal; 2017-07-31)
PROC: 0DQE0ZZ Repair Large Intestine, Open Approach (ICD-10-PCS; principal; 2017-07-31)
PROC: 02HV33Z Insertion of Infusion Device into Superior Vena Cava, Percutaneous Approach (ICD-10-PCS; principal; 2017-07-31)
PROC: 0UT90ZZ Resection of Uterus, Open Approach (ICD-10-PCS; principal; 2017-07-31)
PROC: 0DN80ZZ Release Small Intestine, Open Approach (ICD-10-PCS; principal; 2017-07-31)
PROC: 0UT70ZZ Resection of Bilateral Fallopian Tubes, Open Approach (ICD-10-PCS; principal; 2017-07-31)
PROC: 0UT20ZZ Resection of Bilateral Ovaries, Open Approach (ICD-10-PCS; principal; 2017-07-31)
PROC: 30233R1 Transfusion of Nonautologous Platelets into Peripheral Vein, Percutaneous Approach (ICD-10-PCS; 2017-08-02)
PROC: 0WUF0JZ Supplement Abdominal Wall with Synthetic Substitute, Open Approach (ICD-10-PCS; 2017-08-04)
PROC: 0DQE0ZZ Repair Large Intestine, Open Approach (ICD-10-PCS; 2017-08-04)
PROC: 3E1M38Z Irrigation of Peritoneal Cavity using Irrigating Substance, Percutaneous Approach (ICD-10-PCS; 2017-08-04)
DX: T81.32XA Disruption of internal operation (surgical) wound, not elsewhere classified, initial encounter (principal); K68.12 Psoas muscle abscess; Y83.2 Surgical operation with anastomosis, bypass or graft as the cause of abnormal reaction of the patient, or of later complication, without mention of misadventure at the time of the procedure; K91.30 Postprocedural intestinal obstruction, unspecified as to partial versus complete; K91.89 Other postprocedural complications and disorders of digestive system; D63.8 Anemia in other chronic diseases classified elsewhere; K70.31 Alcoholic cirrhosis of liver with ascites; N82.3 Fistula of vagina to large intestine; E22.2 Syndrome of inappropriate secretion of antidiuretic hormone; I10 Essential (primary) hypertension; J93.82 Other air leak; Z93.2 Ileostomy status; K43.2 Incisional hernia without obstruction or gangrene; I82.411 Acute embolism and thrombosis of right femoral vein; I82.422 Acute embolism and thrombosis of left iliac vein; I82.432 Acute embolism and thrombosis of left popliteal vein; D68.9 Coagulation defect, unspecified; E16.2 Hypoglycemia, unspecified; R23.0 Cyanosis; E27.40 Unspecified adrenocortical insufficiency; E87.6 Hypokalemia; E88.09 Other disorders of plasma-protein metabolism, not elsewhere classified; K66.0 Peritoneal adhesions (postprocedural) (postinfection); D25.9 Leiomyoma of uterus, unspecified; J98.11 Atelectasis; I26.99 Other pulmonary embolism without acute cor pulmonale; I97.89 Other postprocedural complications and disorders of the circulatory system, not elsewhere classified; Y83.8 Other surgical procedures as the cause of abnormal reaction of the patient, or of later complication, without mention of misadventure at the time of the procedure; Y92.239 Unspecified place in hospital as the place of occurrence of the external cause
CPT/HCPCS: 36600; 71045; 76937; 80048; 80048 91; 80053; 81003; 82140; 82436; 82533 91; 82550; 82550 91; 82803; 82948; 83605; 83735; 83930; 83935; 84100; 84133; 84145 90; 84300; 84443; 84478; 84484; 85025; 85025 91; 85027; 85384; 85610; 85730; 86022 90; 86141; 86850; 86900; 86901; 86920; 86965; 87070; 87205; 87641; 88305; 88307; 93306; 93931; 93970; 94002; 94003; 94010; 94640; 94640 76; 94760; 94799; 97530 GO; 97530 GP; 99202; A6214; C1751; C1753; C1781; C1894; C9113; J0131; J1100; J1650; J1720; J1885; J1940; J2250; J2370; J2405; J2704; J2710; J2795; J3010; J3475; J3480; J7030; J7040; J7050; J7070; J7120; J7643; P9012; P9016; P9017; P9037; P9045; P9047; Q0175; S0074

== ENCOUNTER → 2017-10-22 | Outpatient (CLI) | payer BC ==
[~2017-10-22] MED LIST changes: +AMOXICILLIN875 MG PO; +AUGMENTIN875 MG PO; +OXYCODONE HCL5 MG PO; +POTASSIUM20 MEQ/11 PO; +PREDNISONE20 MG PO; +SUPPLEMENT PO
[2017-10-22 10:16] LABS: HEMATOCRIT 34.8 % (36.0-46.0); HEMOGLOBIN 11.3 G/DL (11.9-15.5); MCH 29.5 PG (29.0-34.0); MCHC 32.5 G/DL (30.0-36.0); MCV 90.9 FL (83-99); PLATELET COUNT 356 K/uL (156-360); RBC DIS.WIDTH-CV 15.6 % (11.8-14.6); RED BLOOD COUNT 3.83 M/uL (3.80-5.20); WHITE BLOOD COUNT 8.8 K/uL (4.1-10.2)
[2017-10-22 10:52] LABS: ALBUMIN 3.2 G/DL (3.2-4.8); ALKALINE PHOSPHATASE 75 IU/L (3-129); ALT (GPT) 11 IU/L (3-49); AST (GOT) 25 IU/L (2-34); CHLORIDE 98 MEQ/L (99-109); CREATININE 0.8 MG/DL (0.6-1.3); GFR ESTIMATE (CALCULATED) > 59 mL/min/; GLUCOSE 115 mg/dL (70-99); POTASSIUM 3.5 MEQ/L (3.7-5.4); SODIUM 130 MEQ/L (136-147); TOTAL BILIRUBIN 0.9 MG/DL (0.0-1.0); TOTAL PROTEIN 8.5 G/DL (6.4-8.3); UREA NITROGEN (BUN) 13 mg/dL (9-23)
[2017-10-22 11:09] LABS: INTER. NORMALIZED RATIO 1.2
[2017-10-22 11:12] LABS: PTT 29.1 SEC (25-37)
== END | disposition home or self-care (01) ==
LOC: OPR 09:34 → EDSTATUS 10:00 → OPR 10:00
PROVIDERS: Surgery
PROC: 0K9 Muscles, Drainage (ICD-10-PCS; principal; 2017-10-22)
DX: K68.12 Psoas muscle abscess (principal); B96.20 Unspecified Escherichia coli [E. coli] as the cause of diseases classified elsewhere; Z93.2 Ileostomy status; K70.31 Alcoholic cirrhosis of liver with ascites; K57.90 Diverticulosis of intestine, part unspecified, without perforation or abscess without bleeding; Z79.01 Long term (current) use of anticoagulants; Z87.891 Personal history of nicotine dependence; Z88.1 Allergy status to other antibiotic agents
CPT/HCPCS: 49406; 80053; 85027; 85610; 85730; 87075; 87077; 87205; C1729; C1769; J3010

== ENCOUNTER → 2017-12-04 | Outpatient (CLI) | payer BC ==
[~2017-12-04] MED LIST changes: +LYRICA75 MG PO
[2017-12-04 08:23] LABS: HEMATOCRIT 32.5 % (36.0-46.0); HEMOGLOBIN 10.4 G/DL (11.9-15.5); MCH 30.1 PG (29.0-34.0); MCV 93.9 FL (83-99); PLATELET COUNT 236 K/uL (156-360); RBC DIS.WIDTH-CV 15.7 % (11.8-14.6); RBC DIS.WIDTH-SD 54.6 % (39-53); RED BLOOD COUNT 3.46 M/uL (3.80-5.20); WHITE BLOOD COUNT 4.1 K/uL (4.1-10.2)
[2017-12-04 08:34] LABS: INTER. NORMALIZED RATIO 1.1
[2017-12-04 08:37] LABS: PTT 27.7 SEC (25-37)
== END | disposition home or self-care (01) ==
LOC: OPR 07:29 → EDSTATUS 08:00 → OPR 08:00
PROVIDERS: Surgery
PROC: 0WPHX0Z Removal of Drainage Device from Retroperitoneum, External Approach (ICD-10-PCS; principal; 2017-12-04)
DX: T85.618A Breakdown (mechanical) of other specified internal prosthetic devices, implants and grafts, initial encounter (principal); Z53.09 Procedure and treatment not carried out because of other contraindication; K70.31 Alcoholic cirrhosis of liver with ascites; Z93.2 Ileostomy status
CPT/HCPCS: 49406; 85027; 85610; 85730; C1729; C1769